=== PATIENT | female | born 1935 | race African-American/Black ===

== ENCOUNTER 2018-08-12 18:45 | Inpatient (IN) | payer MEDICARE ==
[~2018-08-12] VITALS: Ht 167.6 cm; Wt 91.2 kg
--- NOTE | 2018-08-12 19:10 | NUR ---
NURSE NOTES: Patient arrived on [facility] via ambulance from [facility]. Report was received from charge nurse ANNABELLE Pardo. Patient is stable, is not in pain, able to ambulate to the restroom. information manager placed on patient, family is at bedside, call light within reach and Dr. Merrill has been contacted for admission orders.
[2018-08-12 20:00] VITALS: BP 130/60
[2018-08-12] MEDS ORDERED: Milk of Magnesia 30ml Ud ORAL PRN (22:15)
[2018-08-13] VITALS: BP 130/60
[2018-08-13 04:00] VITALS: BP 108/46
[2018-08-13 06:07] LABS: BASOPHILS % (AUTO) 0.7 % (0.0-2.0); EOSINOPHILS % (AUTO) 0.5 % (0.0-3.0); HEMATOCRIT 36.9 % (37.0-47.0); HEMOGLOBIN 11.7 G/DL (12.0-16.0); LYMPHOCYTES % (AUTO) 15.1 % (20.0-45.0); MEAN CORPUSCULAR VOLUME 97 FL (80-99); MONOCYTES % (AUTO) 11.1 % (1.0-10.0); NEUTROPHILS % (AUTO) 72.6 % (45.0-75.0); PLATELET COUNT 116 K/UL (150-450); RED BLOOD COUNT 3.79 M/UL (4.20-5.40); RED CELL DISTRIBUTION WIDTH 15.7 % (11.6-14.8)
[2018-08-13] MEDS: sitaGLIPtin 25mg tab ORAL SCH (06:24)
[2018-08-13] MEDS: NovoLOG Insulin Flexpen SUBQ SCH ×4 (06:26→21:03)
[2018-08-13 06:46] LABS: ALANINE AMINOTRANSFERASE 18 U/L (12-78); ALBUMIN 3.4 G/DL (3.4-5.0); ALBUMIN/GLOBULIN RATIO 0.8 (1.0-2.7); ALKALINE PHOSPHATASE 97 U/L (46-116); ANION GAP 8 mmol/L (5-15); ASPARTATE AMINO TRANSFERASE 24 U/L (15-37); BILIRUBIN,TOTAL 0.6 MG/DL (0.2-1.0); BLOOD UREA NITROGEN 82 mg/dL (7-18); CALCIUM 9.6 MG/DL (8.5-10.1); CARBON DIOXIDE 27 MMOL/L (21-32); CHLORIDE 102 MMOL/L (98-107); CHOLESTEROL 136 MG/DL (< 200); CREATININE 2.7 MG/DL (0.55-1.30); HDL CHOLESTEROL 48 MG/DL (40-60); POTASSIUM 3.9 MMOL/L (3.5-5.1); SODIUM 137 MMOL/L (136-145); TRIGLYCERIDES 94 MG/DL (30-150)
--- NOTE | 2018-08-13 07:20 | NUR ---
HAND-OFF: Report given to ANNABELLE QUINTERO.
[2018-08-13 08:00] VITALS: BP 118/55
[2018-08-13] MEDS ORDERED: Heparin 5000 units/ml inj SUBQ SCH (09:00)
[2018-08-13] MEDS: Amiodarone 200mg tab ORAL SCH (09:46)
[2018-08-13] MEDS: Carvedilol 6.25mg Tab ORAL SCH ×2 (09:47→21:02)
[2018-08-13] MEDS: Allopurinol 100mg Tab ORAL SCH (09:47)
[2018-08-13] MEDS: Docusate 100mg cap ORAL SCH ×2 (09:47→17:59)
[2018-08-13] MEDS: Losartan 25mg tab ORAL SCH (09:48)
[2018-08-13] MEDS: Spironolactone 25mg tab ORAL SCH (09:48)
[2018-08-13] MEDS: Xarelto 15mg tab ORAL SCH (13:47)
[2018-08-13 15:27] VITALS: BP 101/52
[2018-08-13 16:57] VITALS: BP 125/63
--- NOTE | 2018-08-13 17:00 | NUR ---
NURSE NOTES:DR BRADY CAME TO SEE THE PT AND SPOKE WITH THE PATIENT AND FAMILY AND EXPLAINED REGARDING ABNORMAL RESULT OF PACE MAKER AND NEEDS INTERVENTION SOON POSSIBLE AND THE PROCEDURE NEEDS TO BE DONE AT [facility].PT AND FAMILY AGREE TO BE TRANSFER TO [facility].WILL CONT TO MONITOR.
--- NOTE | 2018-08-13 17:24 | Cardiac Electrophysiology PN ---
Subjective Subjective [id number] Objective Last 24 Hour Vital Signs Date Time Temp Pulse Resp B/P (MAP) Pulse Ox O2 Delivery O2 Flow Rate FiO2 08/13/18 16:57 97.6 61 19 125/63 (83) 61 08/13/18 15:27 97.6 65 20 101/52 (68) 67 08/13/18 12:00 62 08/13/18 09:48 118/55 08/13/18 09:47 62 118/55 08/13/18 09:00 Nasal Cannula 2.0 08/13/18 08:00 62 08/13/18 08:00 97.5 108 14 118/55 (76) 100 08/13/18 04:15 66 08/13/18 04:00 97.6 66 15 108/46 (66) 100 08/13/18 00:00 97.5 60 14 130/60 (83) 99 08/12/18 23:21 60 08/12/18 21:00 Nasal Cannula 2.0 08/12/18 20:00 60 08/12/18 20:00 98.0 60 14 130/60 (83) 99 08/12/18 19:00 Nasal Cannula 2.0 Laboratory Tests Test 08/13/18 04:50 White Blood Count 5.0 K/UL (4.8-10.8) Red Blood Count 3.79 M/UL (4.20-5.40) L Hemoglobin 11.7 G/DL (12.0-16.0) L Hematocrit 36.9 % (37.0-47.0) L Mean Corpuscular Volume 97 FL (80-99) Mean Corpuscular Hemoglobin 30.8 PG (27.0-31.0) Mean Corpuscular Hemoglobin Concent 31.7 G/DL (32.0-36.0) L Red Cell Distribution Width 15.7 % (11.6-14.8) H Platelet Count 116 K/UL (150-450) L Mean Platelet Volume 11.1 FL (6.5-10.1) H Neutrophils (%) (Auto) 72.6 % (45.0-75.0) Lymphocytes (%) (Auto) 15.1 % (20.0-45.0) L Monocytes (%) (Auto) 11.1 % (1.0-10.0) H Eosinophils (%) (Auto) 0.5 % (0.0-3.0) Basophils (%) (Auto) 0.7 % (0.0-2.0) Sodium Level 137 MMOL/L (136-145) Potassium Level 3.9 MMOL/L (3.5-5.1) Chloride Level 102 MMOL/L (98-107) Carbon Dioxide Level 27 MMOL/L (21-32) Anion Gap 8 mmol/L (5-15) Blood Urea Nitrogen 82 mg/dL (7-18) H Creatinine 2.7 MG/DL (0.55-1.30) H Estimat Glomerular Filtration Rate mL/min (>60) Glucose Level 173 MG/DL (74-106) H Hemoglobin A1c 8.7 % (4.3-6.0) H Calcium Level 9.6 MG/DL (8.5-10.1) Total Bilirubin 0.6 MG/DL (0.2-1.0) Aspartate Amino Transf (AST/SGOT) 24 U/L (15-37) Alanine Aminotransferase (ALT/SGPT) 18 U/L (12-78) Alkaline Phosphatase 97 U/L (46-116) Troponin I 0.109 ng/mL (0.000-0.056) Total Protein 7.5 G/DL (6.4-8.2) Albumin 3.4 G/DL (3.4-5.0) Globulin 4.1 g/dL Albumin/Globulin Ratio 0.8 (1.0-2.7) L Triglycerides Level 94 MG/DL (30-150) Cholesterol Level 136 MG/DL (< 200) LDL Cholesterol 75 mg/dL (<100) HDL Cholesterol 48 MG/DL (40-60) Cholesterol/HDL Ratio 2.8 (3.3-4.4) L Thyroid Stimulating Hormone (TSH) 0.766 uiU/mL (0.358-3.740) Microbiology Date/Time Source Procedure Growth Status 08/13/18 04:20 Rectum Received Gonzalez Grier MD Aug 13, 2018 17:24
--- NOTE | 2018-08-13 19:10 | NUR ---
HAND-OFF: Report given to .ENA ALANIS.
--- NOTE | 2018-08-13 19:20 | NUR ---
NURSE NOTES: Received patient from ANNABELLE QUINTERO. Patient is awake, alert and oriented x4. Patient is stable states no pain, and showing no signs and symptoms of distress. Family members are at bedside and will continue plan of care.
[2018-08-13 20:00] VITALS: BP 113/53
[2018-08-13] MEDS: Atorvastatin 20mg tab ORAL SCH (21:02)
[2018-08-14] VITALS: BP 115/57
--- NOTE | 2018-08-14 02:45 | Consultation ---
DATE OF CONSULTATION: 08/13/2018 NOTE: "POOR AUDIO QUALITY" CARDIOLOGY CONSULTATION CONSULTING PHYSICIAN: Gonzalez Grier M.D. REFERRING PHYSICIAN: Trae Calvo M.D. REASON FOR CONSULTATION: Evaluation of the patient's defibrillator. HISTORY OF PRESENT ILLNESS: The patient is a very pleasant 83-year-old lady, under my Cardiology care, with history of severe cardiomyopathy with ejection fraction of 32%, who also underwent cardiac catheterization in December 2017 that showed no evidence of significant coronary artery disease. The patient has also history of paroxysmal atrial fibrillation as well as history of pacemaker implantation that was upgraded to a [employer] biventricular defibrillator on March 31, 2018, at [facility]. The patient's right ventricular capture threshold was slightly high. The patient also has history of severe anemia, status post blood transfusion by Dr. Navarro. The patient presented to [facility] when she presented with three shocks from her defibrillator. The patient had only minimal troponin elevation. At my request, the patient was then transferred to [facility] for further evaluation and management. Defibrillator subsequently was interrogated today with three shocks likely due to noise on the defibrillator lead. RV capture threshold was also very high, but the shock impedance was within normal range. The patient is also pacemaker dependent with AV lead capture . REVIEW OF SYSTEMS: Performed and was negative other than what was mentioned in the history of present illness. PAST MEDICAL HISTORY: As mentioned above. MEDICATIONS: Include Xarelto 15 mg daily, Lipitor 10 mg daily, Plavix 75 mg daily, amiodarone 200 mg daily, Aldactone 25 mg daily, Coreg 6.25 mg b.i.d., and losartan 25 mg daily. FAMILY HISTORY: Noncontributory. SOCIAL HISTORY: She lives at home. Does not smoke or drink alcohol. PHYSICAL EXAMINATION: VITAL SIGNS: Showed blood pressure of 124/63, pulse 61, respirations 18, and she is afebrile. HEAD AND NECK: Showed no JVD. LUNGS: Clear. CARDIOVASCULAR: Regular S1 and S2 with no gallop or murmur. ABDOMEN: Soft. EXTREMITIES: No pitting edema. SKIN: Defibrillator in left subclavian is intact. LABORATORY DATA: Labs showed white count of 5, hemoglobin 11.7, hematocrit 37, and platelet count of 116,000. Sodium 137, potassium 3.9, BUN of 83, creatinine of 2.7, and glucose of 173. Troponin is 0.109. ASSESSMENT AND PLAN: 1. Defibrillator discharges from right ventricular lead artifact. It is possible that the RV lead has been pulled back and double counting causing defibrillator discharge. The patient has a capped right ventricular pacing lead from a pacemaker; however, the new device is a DF4 device and we cannot use that old pacing lead for RV sensing, so probably we will try to transfer the patient to [facility] as the patient would need a right ventricular lead revision. This may be in the form of repositioning the existing lead that may better capture threshold, repeated testing or if there is lead dysfunction, maybe able to remove the lead and place a new right ventricular sensing and shocking lead with the existing defibrillator. I discussed with the patient and the family the risks, benefits, and alternatives of therapy and they agreed and would like to proceed. In the meantime, we will stop Xarelto a couple of days prior to scheduled procedure and try to put her on the schedule. Since the patient is pacemaker dependent, we will rather put right ventricular transvenous lead as a backup or temporary pacing or is being attempted. 2. History of paroxysmal atrial fibrillation, on amiodarone 200 mg daily and Coreg 6.25 mg b.i.d. Xarelto will be held. 3. History of recurrent pleural effusion, status post VATS and pleurodesis, with doxycycline in July 2017. 4. COPD. 5. History of severe anemia. 6. Cardiomyopathy, ejection fraction of 32%, on Coreg, Lasix, Aldactone, and losartan. Thank you very much for allowing me to participate in the care of this patient. Please do not hesitate to contact me for any questions regarding my evaluation. Gonzalez Grier M.D. DR: Mel JOB#: [id number] CC:
[2018-08-14 04:00] VITALS: BP 124/53
[2018-08-14 04:47] LABS: BASOPHILS % (AUTO) 2.1 % (0.0-2.0); EOSINOPHILS % (AUTO) 0.9 % (0.0-3.0); HEMATOCRIT 34.9 % (37.0-47.0); HEMOGLOBIN 11.2 G/DL (12.0-16.0); MEAN CORPUSCULAR VOLUME 97 FL (80-99); MONOCYTES % (AUTO) 15.3 % (1.0-10.0); NEUTROPHILS % (AUTO) 64.8 % (45.0-75.0); PLATELET COUNT 127 K/UL (150-450); RED BLOOD COUNT 3.59 M/UL (4.20-5.40); RED CELL DISTRIBUTION WIDTH 15.9 % (11.6-14.8); WHITE BLOOD COUNT 4.7 K/UL (4.8-10.8)
[2018-08-14 05:23] LABS: ANION GAP 9 mmol/L (5-15); BLOOD UREA NITROGEN 79 mg/dL (7-18); CALCIUM 9.9 MG/DL (8.5-10.1); CARBON DIOXIDE 27 MMOL/L (21-32); CHLORIDE 104 MMOL/L (98-107); CREATININE 2.7 MG/DL (0.55-1.30); POTASSIUM 4.1 MMOL/L (3.5-5.1); SODIUM 140 MMOL/L (136-145)
--- NOTE | 2018-08-14 06:03 | NUR ---
NURSE NOTES: Spoke with Anselmo from [facility] regarding patients cardiac rhythms while here in [place]. She clarified patient's condition and AICD information. Plan is to transfer to [facility] per Desirae's request of or Monday; she will be working on bed/transfer placement. Charge nurse notified and will endorse to incoming RN.
[2018-08-14] MEDS: sitaGLIPtin 25mg tab ORAL SCH (06:25)
[2018-08-14] MEDS: NovoLOG Insulin Flexpen SUBQ SCH ×4 (06:26→20:53)
--- NOTE | 2018-08-14 07:15 | NUR ---
NURSE NOTES: RECEIVED BED SIDE REPORT FROM ENA SCABBLER OF NOC SHIFT. RECEIVED PT RESTING IN BED QUIETLY ,AWAKE AND ALERT DENIES CP OR SOB AT THIS TIME.PT USING O2 @ 2L/MINTS VIA N/C. PT IS V-PACING HR 60BPM NOTED ON [employer]ASS[employer] DEVELOPER.PT ENCOURAGED TO USED BED SIDE COMMODE AND TO USE CALL LIGHT WITH REACH TO REQUEST ASSISTANCE.FULL BODY ASSESSMENT DONE.WILL CONT TO MONITOR.
--- NOTE | 2018-08-14 07:32 | NUR ---
HAND-OFF: Report given to ANNABELLE QUINTERO.
[2018-08-14 08:00] VITALS: BP 99/61
[2018-08-14] MEDS: Docusate 100mg cap ORAL SCH ×2 (09:47→17:36)
[2018-08-14] MEDS: Spironolactone 25mg tab ORAL SCH (09:47)
[2018-08-14] MEDS: Losartan 25mg tab ORAL SCH (09:48)
[2018-08-14] MEDS: Amiodarone 200mg tab ORAL SCH (09:49)
[2018-08-14] MEDS: Allopurinol 100mg Tab ORAL SCH (09:56)
[2018-08-14] MEDS: Carvedilol 6.25mg Tab ORAL SCH ×2 (09:57→20:52)
[2018-08-14 12:00] VITALS: BP 116/57
--- NOTE | 2018-08-14 15:55 | Cardiac Electrophysiology PN ---
Assessment/Plan Assessment/Plan 1. Defibrillator discharges from right ventricular lead artifact. It is possible that the RV lead has been pulled back and double counting causing defibrillator discharge. The patient has a capped right ventricular pacing lead from an old pacemaker. The new device is a DF4 device and we cannot use that old pacing lead for RV sensing. Awaiting transfer to [facility] as the patient would need a right ventricular lead revision. This may be in the form of repositioning the existing lead that may cause better capture threshold, or maybe able to remove the lead and place a new right ventricular sensing and shocking lead with the existing defibrillator. I discussed with the patient and the family the risks, benefits, and alternatives of therapy and they agreed and would like to proceed. In the meantime, we will stop Xarelto a couple of days prior to scheduled procedure that is on the schedule on 08/17/18. Since the patient is pacemaker dependent, we will put right ventricular transvenous lead as a backup 2. History of paroxysmal atrial fibrillation, on amiodarone 200 mg daily and Coreg 6.25 mg b.i.d. Xarelto will be held. 3. History of recurrent pleural effusion, status post VATS and pleurodesis, with doxycycline in July 2017. 4. COPD. 5. History of severe anemia. 6. Cardiomyopathy, ejection fraction of 32%, on Coreg, Lasix, Aldactone, and losartan. DW [facility] CTR and scheduling department Subjective Subjective Remained V paced. No CP or SOB Objective Last 24 Hour Vital Signs Date Time Temp Pulse Resp B/P (MAP) Pulse Ox O2 Delivery O2 Flow Rate FiO2 08/14/18 12:00 97.8 60 23 116/57 (76) 08/14/18 12:00 60 08/14/18 09:57 116 109/60 08/14/18 09:48 99/61 08/14/18 09:00 Nasal Cannula 2.0 08/14/18 08:00 118 08/14/18 08:00 97.8 116 24 99/61 (74) 100 08/14/18 04:00 98.2 62 16 124/53 (76) 98 08/14/18 03:23 66 08/14/18 00:10 63 08/14/18 00:00 98.6 68 20 115/57 (76) 98 08/13/18 21:02 63 113/53 08/13/18 21:00 Nasal Cannula 2.0 08/13/18 20:00 98.5 63 20 113/53 (73) 93 08/13/18 19:27 60 08/13/18 16:57 97.6 61 19 125/63 (83) 61 08/13/18 16:00 61 Intake and Output 08/13/18 08/14/18 19:00 07:00 Intake Total 580 ml Balance 580 ml Intake Oral 580 ml # Voids 2 1 # Bowel Movements 1 Laboratory Tests Test 08/14/18 03:35 White Blood Count 4.7 K/UL (4.8-10.8) L Red Blood Count 3.59 M/UL (4.20-5.40) L Hemoglobin 11.2 G/DL (12.0-16.0) L Hematocrit 34.9 % (37.0-47.0) L Mean Corpuscular Volume 97 FL (80-99) Mean Corpuscular Hemoglobin 31.1 PG (27.0-31.0) H Mean Corpuscular Hemoglobin Concent 32.0 G/DL (32.0-36.0) Red Cell Distribution Width 15.9 % (11.6-14.8) H Platelet Count 127 K/UL (150-450) L Mean Platelet Volume 9.6 FL (6.5-10.1) Neutrophils (%) (Auto) 64.8 % (45.0-75.0) Lymphocytes (%) (Auto) 17.0 % (20.0-45.0) L Monocytes (%) (Auto) 15.3 % (1.0-10.0) H Eosinophils (%) (Auto) 0.9 % (0.0-3.0) Basophils (%) (Auto) 2.1 % (0.0-2.0) H Sodium Level 140 MMOL/L (136-145) Potassium Level 4.1 MMOL/L (3.5-5.1) Chloride Level 104 MMOL/L (98-107) Carbon Dioxide Level 27 MMOL/L (21-32) Anion Gap 9 mmol/L (5-15) Blood Urea Nitrogen 79 mg/dL (7-18) H Creatinine 2.7 MG/DL (0.55-1.30) H Estimat Glomerular Filtration Rate mL/min (>60) Glucose Level 66 MG/DL (74-106) #L Calcium Level 9.9 MG/DL (8.5-10.1) Magnesium Level 2.1 MG/DL (1.8-2.4) Troponin I 0.089 ng/mL (0.000-0.056) Pro-B-Type Natriuretic Peptide 2338 pg/mL (0-125) H Microbiology Date/Time Source Procedure Growth Status 08/13/18 04:20 Rectum Received Objective HEAD AND NECK: No JVD. LUNGS: Clear. CARDIOVASCULAR: Regular S1 and S2 with no gallop or murmur. ABDOMEN: Soft. EXTREMITIES: No pitting edema. SKIN: Defibrillator in left subclavian is intact. Gonzalez Grier MD Aug 14, 2018 15:55
[2018-08-14 16:00] VITALS: BP 119/48
--- NOTE | 2018-08-14 16:11 | Consultation ---
Consult Note Assessment/Plan Renal consult dictated # [id number] Corbin Pearl MD Aug 14, 2018 16:11
[2018-08-14] MEDS: Xarelto 15mg tab ORAL SCH (16:30)
[2018-08-14] MEDS ORDERED: SPIRONOLACTONE25 MG ORAL (18:39)
[2018-08-14] MEDS ORDERED: LOSARTAN POTASS25 MG ORAL (18:39)
[2018-08-14] MEDS ORDERED: LIPITOR80 MG ORAL (18:39)
[2018-08-14] MEDS ORDERED: PANTOPRAZOLE SO40 MG ORAL (18:39)
[2018-08-14] MEDS ORDERED: [UNRECOGNIZED DRUG - OTHER] PO (18:39)
[2018-08-14] MEDS ORDERED: ZYLOPRIM100 MG ORAL (18:39)
[2018-08-14] MEDS ORDERED: CARVEDILOL6.25 MG ORAL (18:39)
[2018-08-14] MEDS ORDERED: JANUVIA25 MG ORAL (18:39)
[2018-08-14] MEDS ORDERED: PLAVIX75 MG ORAL (18:39)
[2018-08-14] MEDS ORDERED: SYNTHROID100 MCG ORAL (18:39)
[2018-08-14] MEDS ORDERED: NATEGLINIDE120 MG PO (18:39)
[2018-08-14] MEDS ORDERED: KLOR-CON 1010 MEQ ORAL (18:39)
[2018-08-14] MEDS ORDERED: VITAMIN D250000 UNI1 ORAL (18:39)
[2018-08-14] MEDS ORDERED: FAMOTIDINE20 MG ORAL (18:39)
[2018-08-14] MEDS ORDERED: FUROSEMIDE40 MG ORAL (18:39)
[2018-08-14] MEDS ORDERED: AMIODARONE HCL400 M1 ORAL (18:39)
[2018-08-14 19:02] LABS: APPEARANCE,URINE CLOUDY; BILIRUBIN, URINE NEGATIVE (NEGATIVE); COLOR,URINE PALE YELLOW; GLUCOSE, URINE (UA) NEGATIVE (NEGATIVE); KETONES,URINE NEGATIVE (NEGATIVE); LEUKOCYTE ESTERASE ,URINE 3+ (NEGATIVE); NITRITE,URINE NEGATIVE (NEGATIVE); PH,URINE 5 (4.5-8.0); PROTEIN,URINE NEGATIVE (NEGATIVE); UROBILINOGEN,URINE NORMAL MG/DL (0.0-1.0)
--- NOTE | 2018-08-14 19:25 | NUR ---
HAND-OFF: Report given to .MARTA ALANIS.
--- NOTE | 2018-08-14 19:26 | NUR ---
NURSE NOTES: Report received from ANNABELLE Trinidad. Pt A/Ox4, ambulatory. property specialist shows v-pacing. Pt currently on 2L NC. Shows no signs of cardiac or respiratory distress. Pt on an 1800 tim CCHO medium diet. Uses bedside commode for excretion. Accuchecks are ACHS. No skin issues noted. Pt has a LFA24g, patent and asymptomatic. Bed in lowest position, call light within reach, bed alarms placed. Will continue to monitor and with patients plan of care.
[2018-08-14 20:00] VITALS: BP 115/61
[2018-08-14] MEDS: Atorvastatin 20mg tab ORAL SCH (20:50)
--- NOTE | 2018-08-14 21:16 | General Progress Note ---
Assessment/Plan Assessment/Plan NICSteve Medina has BIVICD chf cad COPD ho CVA anemia diabetes pafib htn cards fup diuresis pulmonay hygiene monitor labs bp stable dvt and ulcer prohylaxis Subjective Allergies: Coded Allergies: MORPHINE (Verified Allergy, Unknown, 08/12/18) Subjective no chest pain or sob Objective Last 24 Hour Vital Signs Date Time Temp Pulse Resp B/P (MAP) Pulse Ox O2 Delivery O2 Flow Rate FiO2 08/14/18 20:52 83 115/76 08/14/18 16:00 97.8 61 21 119/48 (71) 98 08/14/18 16:00 60 08/14/18 12:00 60 08/14/18 12:00 97.8 60 23 116/57 (76) 100 08/14/18 09:57 116 109/60 08/14/18 09:48 99/61 08/14/18 09:00 Nasal Cannula 2.0 08/14/18 08:00 118 08/14/18 08:00 97.8 116 24 99/61 (74) 100 08/14/18 04:00 98.2 62 16 124/53 (76) 98 08/14/18 03:23 66 08/14/18 00:10 63 08/14/18 00:00 98.6 68 20 115/57 (76) 98 Intake and Output 08/13/18 08/14/18 19:00 07:00 Intake Total 580 ml Balance 580 ml Intake Oral 580 ml # Voids 2 1 # Bowel Movements 1 Laboratory Tests 08/14/18 03:35: White Blood Count 4.7L, Red Blood Count 3.59L, Hemoglobin 11.2L, Hematocrit 34.9L, Mean Corpuscular Volume 97, Mean Corpuscular Hemoglobin 31.1H, Mean Corpuscular Hemoglobin Concent 32.0, Red Cell Distribution Width 15.9H, Platelet Count 127L, Mean Platelet Volume 9.6, Neutrophils (%) (Auto) 64.8, Lymphocytes (%) (Auto) 17.0L, Monocytes (%) (Auto) 15.3H, Eosinophils (%) (Auto ) 0.9, Basophils (%) (Auto) 2.1H, Sodium Level 140, Potassium Level 4.1, Chloride Level 104, Carbon Dioxide Level 27, Anion Gap 9, Blood Urea Nitrogen 79H, Creatinine 2.7H, Estimat Glomerular Filtration Rate , Glucose Level 66#L, Calcium Level 9.9, Magnesium Level 2.1, Troponin I 0.089H, Pro-B-Type Natriuretic Peptide 2338H 08/14/18 17:25: Calcium (Send out) [Pending], Parathyroid Hormone (Intact) [Pending] 08/14/18 18:00: Urine Color Pale yellow, Urine Appearance Cloudy, Urine pH 5, Urine Specific [place] 1.010, Urine Protein Negative, Urine Glucose (UA) Negative, Urine Ketones Negative, Urine Blood 1+H, Urine Nitrite Negative, Urine Bilirubin Negative, Urine Urobilinogen Normal, Urine Leukocyte Esterase 3+H, Urine RBC 0-2 , Urine WBC TntcH, Urine Squamous Epithelial Cells Occasional, Urine Bacteria ManyH Height (Feet): 5 Height (Inches): 6.00 Weight (Pounds): 173 General Appearance: WD/WN, no apparent distress Neck: supple Cardiovascular: normal rate Respiratory/Chest: lungs clear Abdomen: soft Edema: no edema noted Arm (L), no edema noted Arm (R), no edema noted Leg (L), no edema noted Leg (R), no edema noted Pedal (L), no edema noted Pedal (R), no edema noted Generalized Trae Calvo MD Aug 14, 2018 21:16
--- NOTE | 2018-08-14 22:45 | Consultation ---
DATE OF CONSULTATION: REFERRING PHYSICIAN: Trae Calvo M.D. REASON FOR CONSULTATION: Renal failure. HISTORY OF PRESENT ILLNESS: This 83-year-old -[place] female with history of severe cardiomyopathy ejection fraction about 32%. I was asked to see her because of her renal failure. She was admitted with BUN of 82, creatinine 2.7 as of yesterday and today the BUN and creatinine are 79, 2.7. The patient has had long history of diabetes and hypertension and both diabetes as well as her hypertension have not always been in good control. 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 She was told about a year ago she has some kidney problems she thought that this is mild. PAST MEDICAL HISTORY: The patient has also history of defibrillator, which was in March 2018, cardiac catheterization in December 2017 with no evidence of significant coronary artery disease. She has history of atrial fibrillation. MEDICATIONS: Reviewed in the EMR. SOCIAL HISTORY: The patient stopped smoking in 1996. She drinks occasionally. ALLERGIES: Morphine makes her very confused. REVIEW OF SYSTEMS: Noncontributory. Specifically, the patient denies any urinary symptoms. PHYSICAL EXAMINATION: GENERAL: The patient is an elderly female, in no acute distress. VITAL SIGNS: Blood pressure is 116/57, pulse 60, respiratory is 23, temperature 97.8. HEENT: [place] conjunctivae. Anicteric sclerae. NECK: Supple. LUNGS: Clear to auscultation. HEART: S1, S2 without murmurs or rubs. ABDOMEN: Soft, nontender. EXTREMITIES: No cyanosis or edema. LABORATORY FINDINGS: The chemistry panel shows serum sodium 140, potassium 4.1, chloride 104, CO2 27, BUN 79, creatinine 2.7, Mag is 2.1, and calcium is 9.9. The CBC shows a WBC of 4700, hematocrit is 34.9, hemoglobin is 11.2, platelets 127,000. ASSESSMENT: This is an 83-year-old female was admitted with problems with pacemaker and she has renal failure, which has not changed since yesterday it is unclear what her baseline serum creatinine is, but very likely she has the CKD from diabetes and hypertension. Other possibility such as obstruction needs to be ruled out although less likely. PLAN: The patient will have a UA as well as a renal ultrasound for workup. I will get also vitamin D level and PTH to make sure the patient is vitamin D deficiency and secondary hyperthyroidism. Chemistry panel will be followed and further recommendations will be given based on those results. Thank you very much, Dr. Calvo, for this consultation. Corbin Pearl M.D. DR: Mary JOB#: [id number] CC: SELENA
[2018-08-15] VITALS: BP 104/65
[2018-08-15 04:00] VITALS: BP 109/60
[2018-08-15] MEDS: sitaGLIPtin 25mg tab ORAL SCH (05:31)
[2018-08-15] MEDS: NovoLOG Insulin Flexpen SUBQ SCH ×4 (05:34→21:24)
--- NOTE | 2018-08-15 07:20 | NUR ---
NURSE NOTES: Received patient from Seth Murray RN. Patient in bed and asleep. On 2L NC and in no respiratory distress. visual aid expert in placed. Able to ambulate to the bedside commode. Bed in lowest position with side rails up. Will continue to follow plan of care.
[2018-08-15 07:55] LABS: ANION GAP 8 mmol/L (5-15); BLOOD UREA NITROGEN 78 mg/dL (7-18); CALCIUM 10.1 MG/DL (8.5-10.1); CARBON DIOXIDE 27 MMOL/L (21-32); CHLORIDE 103 MMOL/L (98-107); CREATININE 2.7 MG/DL (0.55-1.30); PHOSPHORUS 3.6 MG/DL (2.5-4.9); POTASSIUM 4.4 MMOL/L (3.5-5.1); SODIUM 138 MMOL/L (136-145)
[2018-08-15 08:00] VITALS: BP 115/50
[2018-08-15 08:17] LABS: BASOPHILS % (AUTO) 1.1 % (0.0-2.0); EOSINOPHILS % (AUTO) 0.3 % (0.0-3.0); HEMATOCRIT 38.5 % (37.0-47.0); HEMOGLOBIN 12.2 G/DL (12.0-16.0); LYMPHOCYTES % (AUTO) 13.8 % (20.0-45.0); MEAN CORPUSCULAR VOLUME 97 FL (80-99); MONOCYTES % (AUTO) 13.1 % (1.0-10.0); NEUTROPHILS % (AUTO) 71.7 % (45.0-75.0); PLATELET COUNT 114 K/UL (150-450); RED BLOOD COUNT 3.97 M/UL (4.20-5.40); RED CELL DISTRIBUTION WIDTH 15.7 % (11.6-14.8); WHITE BLOOD COUNT 5.4 K/UL (4.8-10.8)
[2018-08-15] MEDS: Docusate 100mg cap ORAL SCH ×2 (09:07→17:29)
[2018-08-15] MEDS: Carvedilol 6.25mg Tab ORAL SCH ×2 (09:07→21:00)
[2018-08-15] MEDS: Losartan 25mg tab ORAL SCH (09:07)
[2018-08-15] MEDS: Amiodarone 200mg tab ORAL SCH (09:07)
[2018-08-15] MEDS: Allopurinol 100mg Tab ORAL SCH (09:08)
[2018-08-15] MEDS: Spironolactone 25mg tab ORAL SCH (09:08)
[2018-08-15 12:00] VITALS: BP 104/64
--- NOTE | 2018-08-15 12:49 | NUR ---
PREPRESS MANAGERCREDIT INTERVIEWER 83 Y/O FEMALE DIRECT ADMIT FROM [facility] CC:PACE MAKER MALFUNCTION SI:PACE MAKER MALFUNCTION . CKD VS: BP 115/50, P 131, T 97.2, RR 28, SpO2 97 ON 2.0L NC BUN 78, CR 2.7, URINE BLOOD 1+, RBC 3.97 IS:K-DUR 10meq PLAVIX 75mg CORDARONE 200mg ALDACTONE 25mg COREG 6.25mg COZAAR 25mg ALLOPURINOL 100mg PROTONIX 40mg SYNTHROID 100mcg STARLIX 100mcg JANUVIA 25mg NOVOLOG SUBQ PACE MAKER REPLACEMENT 08/17 SDU STATUS
--- NOTE | 2018-08-15 14:36 | Nephrology Progress Note ---
Assessment/Plan Problem List: (1) Pacemaker malfunction (2) CKD (chronic kidney disease) Assessment: stable (3) DM (diabetes mellitus) (4) HTN (hypertension) Assessment: ok (5) Cardiomyopathy (6) UTI (urinary tract infection) Plan DC KCL diuretics ? check PTH and Vit D follow BMP check urine culture Subjective Subjective feels ok Objective Objective Last 24 Hour Vital Signs Date Time Temp Pulse Resp B/P (MAP) Pulse Ox O2 Delivery O2 Flow Rate FiO2 08/15/18 12:00 97.7 112 18 104/64 (77) 100 08/15/18 09:07 115/50 08/15/18 09:07 118 115/50 08/15/18 09:00 Nasal Cannula 2.0 08/15/18 08:00 116 08/15/18 08:00 97.2 118 18 115/50 (71) 97 08/15/18 04:00 97.9 113 28 109/60 (76) 100 08/15/18 04:00 115 08/15/18 00:00 98.0 131 20 104/65 (78) 99 08/15/18 00:00 118 08/14/18 21:00 Nasal Cannula 2.0 08/14/18 20:52 83 115/76 08/14/18 20:00 98.9 66 20 115/61 (79) 100 08/14/18 20:00 121 08/14/18 16:00 97.8 61 21 119/48 (71) 98 08/14/18 16:00 60 Intake and Output 08/14/18 08/15/18 18:59 06:59 Intake Total 200 ml 80 ml Balance 200 ml 80 ml Intake Oral 200 ml 80 ml # Voids 1 # Bowel Movements 1 Laboratory Tests 08/14/18 17:25: Calcium (Send out) 9.6, PTH (Intact) Whole Molecule Comment, Parathyroid Hormone (Intact) 146H 08/14/18 18:00: Urine Color Pale yellow, Urine Appearance Cloudy, Urine pH 5, Urine Specific [place] 1.010, Urine Protein Negative, Urine Glucose (UA) Negative, Urine Ketones Negative, Urine Blood 1+H, Urine Nitrite Negative, Urine Bilirubin Negative, Urine Urobilinogen Normal, Urine Leukocyte Esterase 3+H, Urine RBC 0-2 , Urine WBC TntcH, Urine Squamous Epithelial Cells Occasional, Urine Bacteria ManyH 08/15/18 06:54: White Blood Count 5.4, Red Blood Count 3.97L, Hemoglobin 12.2, Hematocrit 38.5, Mean Corpuscular Volume 97, Mean Corpuscular Hemoglobin 30.7, Mean Corpuscular Hemoglobin Concent 31.6L, Red Cell Distribution Width 15.7H, Platelet Count 114L , Mean Platelet Volume 11.9H, Neutrophils (%) (Auto) 71.7, Lymphocytes (%) (Auto ) 13.8L, Monocytes (%) (Auto) 13.1H, Eosinophils (%) (Auto) 0.3, Basophils (%) ( Auto) 1.1, Sodium Level 138, Potassium Level 4.4, Chloride Level 103, Carbon Dioxide Level 27, Anion Gap 8, Blood Urea Nitrogen 78H, Creatinine 2.7H, Estimat Glomerular Filtration Rate , Glucose Level 153H, Calcium Level 10.1, Phosphorus Level 3.6, Vitamin D 25-Hydroxy [Pending], 25-Hydroxy Vitamin D2 [ Pending], 25-Hydroxy Vitamin D3 [Pending] Height (Feet): 5 Height (Inches): 6.00 Weight (Pounds): 173 Cardiovascular: normal rate Respiratory/Chest: lungs clear Extremities: other - no edema Corbin Pearl MD Aug 15, 2018 14:36
[2018-08-15 16:00] VITALS: BP 98/60
--- NOTE | 2018-08-15 16:47 | Cardiology Progress Note ---
Assessment/Plan Status: stable Assessment/Plan Assessment/Plan Assessment/Plan 1. Defibrillator discharges from right ventricular lead artifact. It is possible that the RV lead has been pulled back and double counting causing defibrillator discharge. The patient has a capped right ventricular pacing lead from an old pacemaker. The new device is a DF4 device and we cannot use that old pacing lead for RV sensing. Awaiting transfer to [facility] as the patient would need a right ventricular lead revision. This may be in the form of repositioning the existing lead that may cause better capture threshold, or maybe able to remove the lead and place a new right ventricular sensing and shocking lead with the existing defibrillator. I discussed with the patient and the family the risks, benefits, and alternatives of therapy and they agreed and would like to proceed. In the meantime, we will stop Xarelto a couple of days prior to scheduled procedure that is on the schedule on 08/17/18. Since the patient is pacemaker dependent, we will put right ventricular transvenous lead as a backup 2. History of paroxysmal atrial fibrillation, on amiodarone 200 mg daily and Coreg 6.25 mg b.i.d. Xarelto will be held. 3. History of recurrent pleural effusion, status post VATS and pleurodesis, with doxycycline in July 2017. 4. COPD. 5. History of severe anemia. 6. Cardiomyopathy, ejection fraction of 32%, on Coreg, Lasix, Aldactone, and losartan. Subjective Cardiovascular: Reports: no symptoms Respiratory: Reports: no symptoms Gastrointestinal/Abdominal: Reports: no symptoms Genitourinary: Reports: no symptoms Subjective Coverage for [place] Objective Last 24 Hour Vital Signs Date Time Temp Pulse Resp B/P (MAP) Pulse Ox O2 Delivery O2 Flow Rate FiO2 08/15/18 15:19 114 08/15/18 12:00 97.7 112 18 104/64 (77) 100 08/15/18 09:07 115/50 08/15/18 09:07 118 115/50 08/15/18 09:00 Nasal Cannula 2.0 08/15/18 08:00 116 08/15/18 08:00 97.2 118 18 115/50 (71) 97 08/15/18 04:00 97.9 113 28 109/60 (76) 100 08/15/18 04:00 115 08/15/18 00:00 98.0 131 20 104/65 (78) 99 08/15/18 00:00 118 08/14/18 21:00 Nasal Cannula 2.0 08/14/18 20:52 83 115/76 08/14/18 20:00 98.9 66 20 115/61 (79) 100 08/14/18 20:00 121 General Appearance: no apparent distress, alert, mild distress EENT: PERRL/EOMI, normal ENT inspection Neck: non-tender, supple, normal inspection Rhythm: NSR Cardiovascular: normal rate Respiratory/Chest: chest wall non-tender, lungs clear, normal breath sounds, no respiratory distress Abdomen: normal bowel sounds, non tender, soft, no organomegaly Extremities: normal range of motion, non-tender, normal inspection Neurologic: area forester II-XII grossly normal, no motor/sensory deficits Intake and Output 08/14/18 08/15/18 18:59 06:59 Intake Total 200 ml 80 ml Balance 200 ml 80 ml Intake Oral 200 ml 80 ml # Voids 1 # Bowel Movements 1 Laboratory Tests Test 08/14/18 17:25 08/14/18 18:00 08/15/18 06:54 Calcium (Send out) 9.6 mg/dL (8.7-10.3) PTH (Intact) Whole Molecule Comment (.) Parathyroid Hormone (Intact) 146 pg/mL (15-65) H Urine Color Pale yellow Urine Appearance Cloudy Urine pH 5 (4.5-8.0) Urine Specific [place] 1.010 (1.005-1.035) Urine Protein Negative (NEGATIVE) Urine Glucose (UA) Negative (NEGATIVE) Urine Ketones Negative (NEGATIVE) Urine Blood 1+ (NEGATIVE) H Urine Nitrite Negative (NEGATIVE) Urine Bilirubin Negative (NEGATIVE) Urine Urobilinogen Normal MG/DL (0.0-1.0) Urine Leukocyte Esterase 3+ (NEGATIVE) H Urine RBC 0-2 /HPF (0 - 2) Urine WBC Tntc /HPF (0 - 2) H Urine Squamous Epithelial Cells Occasional /LPF Urine Bacteria Many /HPF (NONE) H White Blood Count 5.4 K/UL (4.8-10.8) Red Blood Count 3.97 M/UL (4.20-5.40) L Hemoglobin 12.2 G/DL (12.0-16.0) Hematocrit 38.5 % (37.0-47.0) Mean Corpuscular Volume 97 FL (80-99) Mean Corpuscular Hemoglobin 30.7 PG (27.0-31.0) Mean Corpuscular Hemoglobin Concent 31.6 G/DL (32.0-36.0) L Red Cell Distribution Width 15.7 % (11.6-14.8) H Platelet Count 114 K/UL (150-450) L Mean Platelet Volume 11.9 FL (6.5-10.1) H Neutrophils (%) (Auto) 71.7 % (45.0-75.0) Lymphocytes (%) (Auto) 13.8 % (20.0-45.0) L Monocytes (%) (Auto) 13.1 % (1.0-10.0) H Eosinophils (%) (Auto) 0.3 % (0.0-3.0) Basophils (%) (Auto) 1.1 % (0.0-2.0) Sodium Level 138 MMOL/L (136-145) Potassium Level 4.4 MMOL/L (3.5-5.1) Chloride Level 103 MMOL/L (98-107) Carbon Dioxide Level 27 MMOL/L (21-32) Anion Gap 8 mmol/L (5-15) Blood Urea Nitrogen 78 mg/dL (7-18) H Creatinine 2.7 MG/DL (0.55-1.30) H Estimat Glomerular Filtration Rate mL/min (>60) Glucose Level 153 MG/DL (74-106) H Calcium Level 10.1 MG/DL (8.5-10.1) Phosphorus Level 3.6 MG/DL (2.5-4.9) Vitamin D 25-Hydroxy Pending 25-Hydroxy Vitamin D2 Pending 25-Hydroxy Vitamin D3 Pending Microbiology Date/Time Source Procedure Growth Status 08/13/18 04:20 Nose MRSA Culture - Final NO METHICILLIN RESISTANT STAPH AUREUS... Complete 08/14/18 18:00 Urine,Clean Catch Urine Culture - Preliminary Gram Negative Bacillus 1 Resulted 08/13/18 04:20 Rectum - Final NO CARBAPENEM-RESISTANT ENTEROBACTERI... Complete 08/13/18 04:20 Rectum VRE Culture - Final NO VANCOMYCIN RESISTANT ENTEROCOCCUS ... Complete Joshua Tovar MD Aug 15, 2018 16:47
[2018-08-15 18:07] LABS: ANION GAP 9 mmol/L (5-15); BLOOD UREA NITROGEN 76 mg/dL (7-18); CALCIUM 10.1 MG/DL (8.5-10.1); CARBON DIOXIDE 27 MMOL/L (21-32); CHLORIDE 101 MMOL/L (98-107); CREATININE 2.6 MG/DL (0.55-1.30); POTASSIUM 4.7 MMOL/L (3.5-5.1); SODIUM 137 MMOL/L (136-145)
--- NOTE | 2018-08-15 19:15 | NUR ---
HAND-OFF: Report given to ANNABELLE Polanco.
[2018-08-15 20:00] VITALS: BP 107/68
--- NOTE | 2018-08-15 20:20 | NUR ---
NURSE NOTES: Recvd pt. Pt is awake and alert AOX4. Pt is on NC @ 2L with no sob or resp distress. Pt is on restricted tim 1800, pt aware. Pt has Left FA 24g saline locked. Bed in lowest position, call light within reach, will continue with plan of care
[2018-08-15] MEDS: Atorvastatin 20mg tab ORAL SCH (21:25)
--- NOTE | 2018-08-15 22:09 | General Progress Note ---
Assessment/Plan Assessment/Plan NIKKI Medina has BIVICD chf cad COPD ho CVA anemia diabetes pafib htn cards fup, awaiting arrangment for trasnfer to [facility] hygiene monitor labs bp stable accuchecks noted dvt and ulcer prohylaxis Subjective Allergies: Coded Allergies: MORPHINE (Verified Allergy, Unknown, 08/12/18) Subjective no chest pain or sob Objective Last 24 Hour Vital Signs Date Time Temp Pulse Resp B/P (MAP) Pulse Ox O2 Delivery O2 Flow Rate FiO2 08/15/18 21:00 85 107/68 08/15/18 18:00 Nasal Cannula 2.0 08/15/18 16:00 97.5 110 16 98/60 (73) 99 08/15/18 15:47 115 08/15/18 15:19 114 08/15/18 12:00 97.7 112 18 104/64 (77) 100 08/15/18 09:07 115/50 08/15/18 09:07 118 115/50 08/15/18 09:00 Nasal Cannula 2.0 08/15/18 08:00 116 08/15/18 08:00 97.2 118 18 115/50 (71) 97 08/15/18 04:00 97.9 113 28 109/60 (76) 100 08/15/18 04:00 115 08/15/18 00:00 98.0 131 20 104/65 (78) 99 08/15/18 00:00 118 Intake and Output 08/14/18 08/15/18 19:00 07:00 Intake Total 200 ml 80 ml Balance 200 ml 80 ml Intake Oral 200 ml 80 ml # Voids 1 # Bowel Movements 1 Laboratory Tests 08/15/18 06:54: White Blood Count 5.4, Red Blood Count 3.97L, Hemoglobin 12.2, Hematocrit 38.5, Mean Corpuscular Volume 97, Mean Corpuscular Hemoglobin 30.7, Mean Corpuscular Hemoglobin Concent 31.6L, Red Cell Distribution Width 15.7H, Platelet Count 114L , Mean Platelet Volume 11.9H, Neutrophils (%) (Auto) 71.7, Lymphocytes (%) (Auto ) 13.8L, Monocytes (%) (Auto) 13.1H, Eosinophils (%) (Auto) 0.3, Basophils (%) ( Auto) 1.1, Sodium Level 138, Potassium Level 4.4, Chloride Level 103, Carbon Dioxide Level 27, Anion Gap 8, Blood Urea Nitrogen 78H, Creatinine 2.7H, Estimat Glomerular Filtration Rate , Glucose Level 153H, Calcium Level 10.1, Phosphorus Level 3.6, Vitamin D 25-Hydroxy [Pending], 25-Hydroxy Vitamin D2 [ Pending], 25-Hydroxy Vitamin D3 [Pending] 08/15/18 17:45: Sodium Level 137, Potassium Level 4.7, Chloride Level 101, Carbon Dioxide Level 27, Anion Gap 9, Blood Urea Nitrogen 76H, Creatinine 2.6H, Estimat Glomerular Filtration Rate , Glucose Level 134H, Calcium Level 10.1 Height (Feet): 5 Height (Inches): 6.00 Weight (Pounds): 173 General Appearance: WD/WN, no apparent distress Neck: supple Cardiovascular: normal rate Respiratory/Chest: lungs clear Abdomen: soft Edema: no edema noted Arm (L), no edema noted Arm (R), no edema noted Leg (L), no edema noted Leg (R), no edema noted Pedal (L), no edema noted Pedal (R), no edema noted Generalized Trae Calvo MD Aug 15, 2018 22:09
--- NOTE | 2018-08-15 23:13 | NUR ---
NURSE NOTES: Pt is complaining of chest pain in left side chest. Called Dr Merrill, Pt is V paced with HR 110. awaiting new orders
[2018-08-16] VITALS: BP 115/61
[2018-08-16 04:00] VITALS: BP 105/62
[2018-08-16] MEDS: NovoLOG Insulin Flexpen SUBQ SCH ×4 (06:13→21:00)
[2018-08-16] MEDS: sitaGLIPtin 25mg tab ORAL SCH (06:14)
--- NOTE | 2018-08-16 07:25 | NUR ---
NURSE NOTES: Report received from Sherri Brandon RN.Pt sitting up on bed awake,alert noted no resp distress denies any c/o chest pain or discomfort,V-paced on the monitor,IV site to LFA intact ,skin warm and dry SR up x2 call stevens within reach at bedside,bed lock in lowest position ,will caontinue with plans of care.
[2018-08-16 08:00] VITALS: BP 104/50
[2018-08-16] MEDS: Docusate 100mg cap ORAL SCH ×2 (09:20→17:49)
[2018-08-16] MEDS: Amiodarone 200mg tab ORAL SCH (09:20)
[2018-08-16] MEDS: Carvedilol 6.25mg Tab ORAL SCH ×2 (09:21→21:00)
[2018-08-16] MEDS: Losartan 25mg tab ORAL SCH (09:22)
[2018-08-16] MEDS: Spironolactone 25mg tab ORAL SCH (09:22)
[2018-08-16] MEDS: Allopurinol 100mg Tab ORAL SCH (09:22)
--- NOTE | 2018-08-16 09:31 | Diagnostic Imaging Report ---
Indication: Chronic renal failure Technique: Grayscale and duplex images of the kidneys, retroperitoneum, and bladder were obtained. Comparison: Findings: Right kidney measures 11.5 cm in length. Left kidney measures 10.5 cm in length. Both kidneys demonstrate normal echogenicity. The left kidney demonstrates a 12 mm cyst.. No focal abnormality. Normal inferior vena cava. Bladder is normal, calculated volume 352 mL. Bilateral ureteral jets are noted. Impression: Negative for hydronephrosis Incidental finding left renal cyst.
[2018-08-16 12:00] VITALS: BP 143/91
--- NOTE | 2018-08-16 12:10 | NUR ---
NURSE NOTES: Pt stable,denies any c/o chest pain or shocking episode,watching TV,family member at bedside.
--- NOTE | 2018-08-16 12:21 | Nephrology Progress Note ---
Assessment/Plan Problem List: (1) Pacemaker malfunction (2) CKD (chronic kidney disease) Assessment: stable (3) DM (diabetes mellitus) (4) HTN (hypertension) Assessment: ok (5) Cardiomyopathy (6) UTI (urinary tract infection) (7) Secondary hyperparathyroidism of renal origin Assessment No labs today Plan We will start patient on Zemplar Patient has Klebsiella UTI. I will start the patient on Levaquin. follow BMP Subjective Subjective feels ok Objective Objective Last 24 Hour Vital Signs Date Time Temp Pulse Resp B/P (MAP) Pulse Ox O2 Delivery O2 Flow Rate FiO2 08/16/18 09:22 104/50 08/16/18 09:21 73 104/50 08/16/18 09:00 Nasal Cannula 2.0 08/16/18 08:00 97.5 73 20 104/50 (68) 97 08/16/18 07:42 106 08/16/18 04:00 97.9 52 20 105/62 (76) 97 08/16/18 04:00 98 08/16/18 00:00 98.0 53 20 115/61 (79) 99 08/16/18 00:00 110 08/15/18 23:08 97.5 08/15/18 21:00 85 107/68 08/15/18 20:00 118 08/15/18 20:00 98.0 85 16 107/68 (81) 100 08/15/18 18:00 Nasal Cannula 2.0 08/15/18 16:00 97.5 110 16 98/60 (73) 99 08/15/18 15:47 115 08/15/18 15:19 114 Intake and Output 08/15/18 08/16/18 19:00 07:00 Intake Total 100 ml Balance 100 ml Intake Oral 100 ml # Voids 1 # Bowel Movements 2 Laboratory Tests 08/15/18 17:45: Sodium Level 137, Potassium Level 4.7, Chloride Level 101, Carbon Dioxide Level 27, Anion Gap 9, Blood Urea Nitrogen 76H, Creatinine 2.6H, Estimat Glomerular Filtration Rate , Glucose Level 134H, Calcium Level 10.1 Height (Feet): 5 Height (Inches): 6.00 Weight (Pounds): 200 Cardiovascular: normal rate Respiratory/Chest: lungs clear Extremities: other - No edema Corbin Pearl MD Aug 16, 2018 12:21
--- NOTE | 2018-08-16 13:13 | History and Physical Report ---
DATE OF ADMISSION: 08/12/2018 HISTORY OF PRESENT ILLNESS: The patient is an unfortunate 83-year-old female with a complex past medical history including history of diabetes, CHF, AFib, pacemaker, CAD, status post stent, history of CVA in the past, history of defibrillator, who apparently was taken to an outside hospital after her defibrillator fired 3 shocks. The patient was taken to [facility] where Dr. Grier, the earth moving technician, was notified and he arranged for direct admission to [facility]. The patient currently denies any shortness of breath. She did feel pressure in her chest. Denies any fevers, chills or palpitations. No abdominal pain. No nausea or vomiting. No changes in bowel habits. No urinary symptoms. PAST MEDICAL HISTORY: Includes history of CAD and stent, history of presyncope, history of pacemaker implantation for sick sinus syndrome pacemaker was upgraded to a biventricular ICD by Dr. 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 She did undergo angioplasty and stenting of the right cavernous back in September 2016. She had a history of intracranial carotid stenosis. She has a history of pulmonary hypertension, history of type 2 diabetes mellitus, history of chronic diastolic heart failure, history of , history of hyperlipidemia, history of hypothyroidism, history of anemia, history of cataract surgery, history of surgery on the left eye due to glaucoma, history of 2 cm colonic adenomatous polyps on colonoscopy, history of gastritis in the gastric cardia, history of recurrent CHF with recurrent pleural effusion, for which she underwent right-sided video-assisted thoracoscopic surgery and pleurodesis by in July 2017, history of right-sided tenosynovitis, history of left arm hematoma after history of cellulitis of the left arm in the past. ALLERGIES: Allergic to morphine. SOCIAL HISTORY: She does not smoke, does not drink any alcohol, does not use any drugs. She has a very supportive family. REVIEW OF SYSTEMS: A 12-point review of systems reviewed and negative except for the above. PHYSICAL EXAMINATION: GENERAL: She is well developed, well nourished, currently in no apparent distress. VITAL SIGNS: Stable. HEENT: Head is normocephalic, atraumatic. Pupils are equal and reactive to light. Extraocular muscles are intact. Eyes are anicteric. NECK: Supple. No JVD. LUNGS: Clear. HEART: Regular. ABDOMEN: Soft. Positive bowel sounds. Nondistended. Nontender. . There is no sign of infection. EXTREMITIES: No clubbing, cyanosis, or edema. NEURO: She is alert, nonfocal. PSYCH: Normal mood and affect. LABORATORY DATA: Labs are pending. ASSESSMENT AND PLAN: The patient is an unfortunate 83-year-old female, transferred from [facility] after getting 3 ICD shocks, arranged by Dr. Grier to [facility]. Labs have been ordered including CBC, complete metabolic panel, magnesium, troponin. Echo has been ordered as well. The patient's defibrillator will need to be interrogated. Dr. Grier will be seeing her and will continue her current medications . For diabetes, monitor Accu-Cheks, insulin sliding scale. The patient should be on DVT and ulcer prophylaxis. Trae Calvo M.D. DR: YAMILETH JOB#: [id number] CC:
[2018-08-16 16:00] VITALS: BP 108/51
--- NOTE | 2018-08-16 16:13 | Cardiac Electrophysiology PN ---
Assessment/Plan Assessment/Plan 1. Defibrillator discharges from right ventricular lead artifact. It is possible that the RV lead has been pulled back and double counting causing defibrillator discharge. The patient has a capped right ventricular pacing lead from an old pacemaker. The new device is a DF4 device and we cannot use that old pacing lead for RV sensing. Awaiting transfer to [facility] as the patient would need a right ventricular lead revision. This may be in the form of repositioning the existing lead that may cause better capture threshold, or maybe able to remove the lead and place a new right ventricular sensing and shocking lead with the existing defibrillator. I discussed with the patient and the family the risks, benefits, and alternatives of therapy and they agreed and would like to proceed. In the meantime, we will stop Xarelto a couple of days prior to scheduled procedure that is on the schedule on 08/17/18. Since the patient is pacemaker dependent, we will put right ventricular transvenous lead as a backup 2. History of paroxysmal atrial fibrillation, on amiodarone 200 mg daily and Coreg 6.25 mg b.i.d. Xarelto held for procedure tomorrow. 3. History of recurrent pleural effusion, status post VATS and pleurodesis, with doxycycline in July 2017. 4. COPD. 5. History of severe anemia. 6. Cardiomyopathy, ejection fraction of 32%, on Coreg, Lasix, Aldactone, and losartan. DW [facility] Transfer [facility] On Schedule for tomorrow Subjective Subjective Remained V paced. No CP or SOB. Awaiting transfer to [facility] for ICD lead revision Objective Last 24 Hour Vital Signs Date Time Temp Pulse Resp B/P (MAP) Pulse Ox O2 Delivery O2 Flow Rate FiO2 08/16/18 12:00 90 08/16/18 12:00 96.8 106 18 143/91 (108) 100 08/16/18 09:22 104/50 08/16/18 09:21 73 104/50 08/16/18 09:00 Nasal Cannula 2.0 08/16/18 08:00 97.5 73 20 104/50 (68) 97 08/16/18 07:42 106 08/16/18 04:00 97.9 52 20 105/62 (76) 97 08/16/18 04:00 98 08/16/18 00:00 98.0 53 20 115/61 (79) 99 08/16/18 00:00 110 08/15/18 23:08 97.5 08/15/18 21:00 85 107/68 08/15/18 20:00 118 08/15/18 20:00 98.0 85 16 107/68 (81) 100 08/15/18 18:00 Nasal Cannula 2.0 Intake and Output 08/15/18 08/16/18 18:59 06:59 Intake Total 100 ml Balance 100 ml Intake Oral 100 ml # Voids 1 # Bowel Movements 2 Laboratory Tests Test 08/15/18 17:45 Sodium Level 137 MMOL/L (136-145) Potassium Level 4.7 MMOL/L (3.5-5.1) Chloride Level 101 MMOL/L (98-107) Carbon Dioxide Level 27 MMOL/L (21-32) Anion Gap 9 mmol/L (5-15) Blood Urea Nitrogen 76 mg/dL (7-18) H Creatinine 2.6 MG/DL (0.55-1.30) H Estimat Glomerular Filtration Rate mL/min (>60) Glucose Level 134 MG/DL (74-106) H Calcium Level 10.1 MG/DL (8.5-10.1) Microbiology Date/Time Source Procedure Growth Status 08/14/18 18:00 Urine,Clean Catch Urine Culture - Final Klebsiella Pneumoniae Complete Objective HEAD AND NECK: No JVD. LUNGS: Clear. CARDIOVASCULAR: Regular S1 and S2 with no gallop or murmur. ABDOMEN: Soft. EXTREMITIES: No pitting edema. SKIN: Defibrillator in left subclavian is intact. Gonzalez Grier MD Aug 16, 2018 16:13
--- NOTE | 2018-08-16 16:50 | NUR ---
NURSE NOTES: Dr Grier at bedside,pt will be NPO post MN for Pacemaker insertion in am at [facility].Pt will be pharmacy picking tech here tomorrow at 11am going to [facility] cardiac solid waste management engineer.Pt aware and informed re plans,verbalized understanding.
--- NOTE | 2018-08-16 17:00 | NUR ---
Social Service Note LEYDA spoke with Stacey at [facility] transfer Center [phone] and confirmed transfer tomorrow 08/17. [employer] transportation arranged with [employer], [phone], pick up driver time at 11:15am. [address] [facility] [address] [address] Pre-Op Bed assignment will be provided once nurse giving report at 10:30am to [phone]. Procedure scheduled for 1400. LEYDA informed patient's dgt Zohreh Jones [phone] of impending transfer. LEYDA discussed with charge nurse.
--- NOTE | 2018-08-16 19:30 | NUR ---
HAND-OFF: Report given to Beth Guzman RN.
[2018-08-16 20:00] VITALS: BP 110/60
--- NOTE | 2018-08-16 20:04 | NUR ---
NURSE NOTES: Received bedside report from ANNABELLE Campos.Patient stable,A&Ox4,V-Paced on undercollar baster,tolerated N/C w/2 L/min well,lungs clear to auscultation,BS active in all quadrants,IV asymptomatic,Lf/arm G24 HL,bed secured,call light within a reach,will continue to monitor and follow POC.
--- NOTE | 2018-08-16 20:44 | Cardiology Report ---
APPROVED REPORT EXAM: Two-dimensional and M-mode echocardiogram with Doppler and color Doppler. INDICATION Ejection Fraction M-Mode DIMENSIONS IVSd1.4 (0.7-1.1cm)Left Atrium (MM)3.9 (1.6-4.0cm) LVDd4.2 (3.5-5.6cm)Aortic Root2.6 (2.0-3.7cm) PWd1.3 (0.7-1.1cm)Aortic Cusp Exc.1.8 (1.5-2.0cm) LVDs2.9 (2.5-4.0cm) PWs1.6 cm Normal left ventricular chamber size. Mid to apical anterosepotal wall dyskinesia is likely due to pacing effect. Left ventricular ejection fraction is estimated to be 50%. Mild left ventricular hypertrophy. No evidence of pericardial effusion. Mild bi-atrial enlargement by 2D. Mild right ventricular enlargement. Focal aortic valve sclerosis with adequate cusp excursion. Moderately thickened mitral valve leaflets with reduced excursion. Mild mitral annulus and aortic root calcification. Pulmonic valve not well visualized. Normal tricuspid valve structure. IVC dilated at 2.4 cm with physiological collapse, suggestive of increased RA pressure. A color flow and spectral Doppler study was performed and revealed: Mild aortic insufficiency. Trace mitral regurgitation. Mitral inflow velocities cannot be assessed due to atrial arrhythmia. Severe tricuspid regurgitation. Tricuspid systolic velocities suggests peak right ventricular systolic pressure of 60 mmHg, consistent with severe pulmonary hypertension. Trace pulmonic regurgitation present.
[2018-08-16] MEDS: Atorvastatin 20mg tab ORAL SCH (21:14)
--- NOTE | 2018-08-16 22:04 | General Progress Note ---
Assessment/Plan Assessment/Plan NIKKI Medina has BIVICD chf cad COPD ho CVA anemia diabetes pafib htn cards fup, awaiting arrangment for transfer to [facility] hygiene monitor labs bp stable accuchecks noted dvt and ulcer prohylaxis Subjective Allergies: Coded Allergies: MORPHINE (Verified Allergy, Unknown, 08/12/18) Subjective no chest pain or sob Objective Last 24 Hour Vital Signs Date Time Temp Pulse Resp B/P (MAP) Pulse Ox O2 Delivery O2 Flow Rate FiO2 08/16/18 21:00 52 110/60 08/16/18 21:00 Nasal Cannula 2.0 08/16/18 20:00 98.4 52 16 110/60 (77) 98 08/16/18 19:11 103 08/16/18 16:00 97.5 79 20 108/51 (70) 98 08/16/18 16:00 76 08/16/18 12:00 90 08/16/18 12:00 96.8 106 18 143/91 (108) 100 08/16/18 09:22 104/50 08/16/18 09:21 73 104/50 08/16/18 09:00 Nasal Cannula 2.0 08/16/18 08:00 97.5 73 20 104/50 (68) 97 08/16/18 07:42 106 08/16/18 04:00 97.9 52 20 105/62 (76) 97 08/16/18 04:00 98 08/16/18 00:00 98.0 53 20 115/61 (79) 99 08/16/18 00:00 110 08/15/18 23:08 97.5 Intake and Output 08/15/18 08/16/18 18:59 06:59 Intake Total 100 ml Balance 100 ml Intake Oral 100 ml # Voids 1 # Bowel Movements 2 Height (Feet): 5 Height (Inches): 6.00 Weight (Pounds): 200 General Appearance: WD/WN, no apparent distress Neck: supple Cardiovascular: normal rate Trae Calvo MD Aug 16, 2018 22:04
[2018-08-17] VITALS: BP 127/58
[2018-08-17 04:00] VITALS: BP 125/61
[2018-08-17 05:40] LABS: BASOPHILS % (AUTO) 1.2 % (0.0-2.0); EOSINOPHILS % (AUTO) 0.4 % (0.0-3.0); HEMOGLOBIN 12.1 G/DL (12.0-16.0); LYMPHOCYTES % (AUTO) 14.7 % (20.0-45.0); MEAN CORPUSCULAR VOLUME 96 FL (80-99); MONOCYTES % (AUTO) 11.8 % (1.0-10.0); NEUTROPHILS % (AUTO) 71.9 % (45.0-75.0); PLATELET COUNT 130 K/UL (150-450); RED BLOOD COUNT 3.94 M/UL (4.20-5.40); RED CELL DISTRIBUTION WIDTH 15.6 % (11.6-14.8); WHITE BLOOD COUNT 5.5 K/UL (4.8-10.8)
[2018-08-17 06:03] LABS: ANION GAP 6 mmol/L (5-15); BLOOD UREA NITROGEN 75 mg/dL (7-18); CALCIUM 10.1 MG/DL (8.5-10.1); CARBON DIOXIDE 26 MMOL/L (21-32); CHLORIDE 101 MMOL/L (98-107); CREATININE 2.5 MG/DL (0.55-1.30); POTASSIUM 4.5 MMOL/L (3.5-5.1); SODIUM 133 MMOL/L (136-145)
[2018-08-17] MEDS: NovoLOG Insulin Flexpen SUBQ SCH (06:30)
[2018-08-17] MEDS: sitaGLIPtin 25mg tab ORAL SCH (06:30)
--- NOTE | 2018-08-17 07:16 | NUR ---
HAND-OFF: Report given to ANNABELLE Lucas.Patient stable.
--- NOTE | 2018-08-17 07:17 | NUR ---
NURSE NOTES: RECEIVED PATIENT FROM Niurka DAVENPORT RN. PATIENT IS SEEN LYING IN BED, RESTING. HOOKED TO JANITORIAL MAINTENANCE WORKER. ON 2L NC. NPO. FOR PROCEDURE IN [facility] TODAY. IV ON L FA G24, SL. JESSIE LIGHT WITHIN REACH. SIDE RAILS UP. BED AT LOWEST POSITION. WILL CONTINUE TO MONITOR.
[2018-08-17 08:00] VITALS: BP 105/62
[2018-08-17 09:00] VITALS: BP 125/61
[2018-08-17] MEDS: Docusate 100mg cap ORAL SCH (09:00)
[2018-08-17] MEDS ORDERED: Paricalcitol 1mcg cap ORAL SCH (09:00)
[2018-08-17] MEDS: Carvedilol 6.25mg Tab ORAL SCH (09:00)
[2018-08-17] MEDS: Spironolactone 25mg tab ORAL SCH (09:00)
[2018-08-17] MEDS: Allopurinol 100mg Tab ORAL SCH (09:00)
[2018-08-17] MEDS: Amiodarone 200mg tab ORAL SCH (09:00)
[2018-08-17] MEDS: Losartan 25mg tab ORAL SCH (09:00)
--- NOTE | 2018-08-17 10:03 | NUR ---
NURSE NOTES: PATIENT KEPT CLEAN AND DRY. NO SIGNS OF DISTRESS. WILL CONTINUE TO MONITOR.
--- NOTE | 2018-08-17 10:58 | Cardiac Electrophysiology PN ---
Assessment/Plan Assessment/Plan 1. Defibrillator discharges from right ventricular lead artifact. It is possible that the RV lead has been pulled back and double counting causing defibrillator discharge. The patient has a capped right ventricular pacing lead from an old pacemaker. The new device is a DF4 device and we cannot use that old pacing lead for RV sensing. Awaiting transfer to [facility] as the patient would need a right ventricular lead revision. This may be in the form of repositioning the existing lead that may cause better capture threshold, or maybe able to remove the lead and place a new right ventricular sensing and shocking lead with the existing defibrillator. I discussed with the patient and the family the risks, benefits, and alternatives of therapy and they agreed and would like to proceed. Off Xarelto x 2 days. Since the patient is pacemaker dependent, we will put right ventricular transvenous lead as a backup 2. History of paroxysmal atrial fibrillation, on amiodarone 200 mg daily and Coreg 6.25 mg b.i.d. Xarelto held for procedure 3. History of recurrent pleural effusion, status post VATS and pleurodesis, with doxycycline in July 2017. 4. COPD. 5. History of severe anemia. 6. Cardiomyopathy, ejection fraction of 32%, on Coreg, Lasix, Aldactone, and losartan. Being picked up at 11 today for her procedure today at 2 at [facility] Subjective Subjective Remained V paced. No CP or SOB. Awaiting transfer to [facility] for ICD lead revision today. Is NPO Objective Last 24 Hour Vital Signs Date Time Temp Pulse Resp B/P (MAP) Pulse Ox O2 Delivery O2 Flow Rate FiO2 08/17/18 09:00 125/61 08/17/18 09:00 104 125/61 08/17/18 08:00 97.2 125 21 105/62 (76) 100 08/17/18 08:00 Nasal Cannula 2.0 08/17/18 04:08 104 08/17/18 04:00 98.1 126 16 125/61 (82) 100 08/17/18 00:00 97.8 107 16 127/58 (81) 99 08/16/18 23:40 122 08/16/18 21:00 52 110/60 08/16/18 21:00 Nasal Cannula 2.0 08/16/18 20:00 98.4 52 16 110/60 (77) 98 08/16/18 19:11 103 3/14/19 16:00 97.5 79 20 108/51 (70) 98 08/16/18 16:00 76 08/16/18 12:00 90 08/16/18 12:00 96.8 106 18 143/91 (108) 100 Intake and Output 08/16/18 08/17/18 19:00 07:00 Intake Total 744 ml Balance 744 ml Intake Oral 744 ml # Voids 3 # Bowel Movements 2 Laboratory Tests Test 08/17/18 04:00 White Blood Count 5.5 K/UL (4.8-10.8) Red Blood Count 3.94 M/UL (4.20-5.40) L Hemoglobin 12.1 G/DL (12.0-16.0) Hematocrit 38.0 % (37.0-47.0) Mean Corpuscular Volume 96 FL (80-99) Mean Corpuscular Hemoglobin 30.7 PG (27.0-31.0) Mean Corpuscular Hemoglobin Concent 31.8 G/DL (32.0-36.0) L Red Cell Distribution Width 15.6 % (11.6-14.8) H Platelet Count 130 K/UL (150-450) L Mean Platelet Volume 11.5 FL (6.5-10.1) H Neutrophils (%) (Auto) 71.9 % (45.0-75.0) Lymphocytes (%) (Auto) 14.7 % (20.0-45.0) L Monocytes (%) (Auto) 11.8 % (1.0-10.0) H Eosinophils (%) (Auto) 0.4 % (0.0-3.0) Basophils (%) (Auto) 1.2 % (0.0-2.0) Sodium Level 133 MMOL/L (136-145) L Potassium Level 4.5 MMOL/L (3.5-5.1) Chloride Level 101 MMOL/L (98-107) Carbon Dioxide Level 26 MMOL/L (21-32) Anion Gap 6 mmol/L (5-15) Blood Urea Nitrogen 75 mg/dL (7-18) H Creatinine 2.5 MG/DL (0.55-1.30) H Estimat Glomerular Filtration Rate mL/min (>60) Glucose Level 201 MG/DL (74-106) H Calcium Level 10.1 MG/DL (8.5-10.1) Microbiology Date/Time Source Procedure Growth Status 08/14/18 18:00 Urine,Clean Catch Urine Culture - Final Klebsiella Pneumoniae Complete Objective HEAD AND NECK: No JVD. LUNGS: Clear. CARDIOVASCULAR: Regular S1 and S2 with no gallop or murmur. ABDOMEN: Soft. EXTREMITIES: No pitting edema. SKIN: Defibrillator in left subclavian is intact. Gonzalez Grier MD Aug 17, 2018 10:58
--- NOTE | 2018-08-17 11:15 | NUR ---
NURSE NOTES: REPORT GIVEN TO [id number] WITH PATIENTS PACKET AND BELONGINGS. REMAINS STABLE. DGT AND MD AWARE OF TRANSFER.
--- NOTE | 2018-08-17 11:19 | NUR ---
INTER-FACILITY TRANSFER: Patient transferred to [facility] , per [facility]. Report given to ANNABELLE BURDICK. Patient transferred with valuables. Belongings verified upon transferr and remained with the patient. Dgt notified of transfer.
--- NOTE | 2018-08-17 11:24 | Nephrology Progress Note ---
Assessment/Plan Problem List: (1) Pacemaker malfunction (2) CKD (chronic kidney disease) Assessment: stable (3) DM (diabetes mellitus) (4) HTN (hypertension) Assessment: ok (5) Cardiomyopathy (6) UTI (urinary tract infection) (7) Secondary hyperparathyroidism of renal origin Assessment No labs today Plan continue Zemplar abxs transfer to [facility] Discussed with Dr Grier Subjective Subjective feels ok Objective Objective Last 24 Hour Vital Signs Date Time Temp Pulse Resp B/P (MAP) Pulse Ox O2 Delivery O2 Flow Rate FiO2 08/17/18 09:00 125/61 08/17/18 09:00 104 125/61 08/17/18 08:00 97.2 125 21 105/62 (76) 100 08/17/18 08:00 Nasal Cannula 2.0 08/17/18 04:08 104 08/17/18 04:00 98.1 126 16 125/61 (82) 100 08/17/18 00:00 97.8 107 16 127/58 (81) 99 08/16/18 23:40 122 08/16/18 21:00 52 110/60 08/16/18 21:00 Nasal Cannula 2.0 08/16/18 20:00 98.4 52 16 110/60 (77) 98 08/16/18 19:11 103 08/16/18 16:00 97.5 79 20 108/51 (70) 98 08/16/18 16:00 76 08/16/18 12:00 90 08/16/18 12:00 96.8 106 18 143/91 (108) 100 Intake and Output 08/16/18 08/17/18 19:00 07:00 Intake Total 744 ml Balance 744 ml Intake Oral 744 ml # Voids 3 # Bowel Movements 2 Laboratory Tests 08/17/18 04:00: White Blood Count 5.5, Red Blood Count 3.94L, Hemoglobin 12.1, Hematocrit 38.0, Mean Corpuscular Volume 96, Mean Corpuscular Hemoglobin 30.7, Mean Corpuscular Hemoglobin Concent 31.8L, Red Cell Distribution Width 15.6H, Platelet Count 130L , Mean Platelet Volume 11.5H, Neutrophils (%) (Auto) 71.9, Lymphocytes (%) (Auto ) 14.7L, Monocytes (%) (Auto) 11.8H, Eosinophils (%) (Auto) 0.4, Basophils (%) ( Auto) 1.2, Sodium Level 133L, Potassium Level 4.5, Chloride Level 101, Carbon Dioxide Level 26, Anion Gap 6, Blood Urea Nitrogen 75H, Creatinine 2.5H, Estimat Glomerular Filtration Rate , Glucose Level 201H, Calcium Level 10.1 Height (Feet): 5 Height (Inches): 6.00 Weight (Pounds): 201 Cardiovascular: normal rate Respiratory/Chest: lungs clear Corbin Pearl MD Aug 17, 2018 11:24
--- NOTE | 2018-08-20 13:22 | Discharge Summary ---
Discharge Summary Discharge Summary _ DATE OF ADMISSION: 08/12/2018 DATE OF DISCHARGE: 08/17/2018 DISCHARGED BY: Dr. Calvo REASON FOR ADMISSION: 83 years old female with past medical history of diabetes, congestive heart failure, atrial fibrillation, defibrillator, coronary artery disease, status post stent, history of CVA, was taken to [facility] after her defibrillator fired 3 shocks. Patient with history of severe cardiomyopathy with ejection fraction of 32% , who underwent cardiac catheterization in 2018, that showed no evidence of significant coronary disease . Patient had a history of pacemaker implantation , upgraded to [employer] biventricular defibrillator on March 31, 2008 at [facility]. Sales Merchandiser Dr. Florence was notified to arrange for direct admission to [facility] for further management. Upon admission patient denied shortness of breath , but reported chest pressure. She denied fever ,chills or palpitation No abdominal pain, no nausea, no vomiting, no change in bowel habits, no urinary symptoms. Patient subsequently was admitted to direct observational unit for further management. CONSULTANTS: purchasing supervisor Dr. Florence supervisor carton and can supply Dr. Pearl [facility] COURSE: Patient admitted. Cardiology and nephrology closely followed. Echocardiogram revealed ejection fraction of 50 % with mild left ventricular hypertrophy. No evidence of pericardial effusion. Mid to apical anteroseptal wall dyskinesia, likely due to pacing effect. Severe tricuspid regurgitation.. Right ventricular systolic pressure of 60 consistent with severe pulmonary hypertension. Lipid panel was stable. Initial troponin - 0.109 and repeated 0.089. EKG revealed sinus rhythm , no acute ischemic changes. Pro BNP 2338. Troponin elevation minimal, levels flat. Troponin elevation was not consistent with acute coronary syndrome. Likely troponin leak secondary to chronic renal failure. Per purchasing supervisor , it was possible that the RV lead had been pulled back and double counting may cause defibrillator discharge. The patient had a capped right ventricular pacing lead from an old pacemaker. The new device is a DF4 device and old pacing lead for RV sensing unable to be used. Patient required transfer to [facility]/higher level of care for right ventricular lead revision . Patient and family consented to procedure. Patient was off Xarelto . Since patient was pacemaker dependent, plan was to put right ventricular transvenous lead as a backup. Patient with history of paroxysmal atrial fibrillation. Heart rate was controlled with amiodarone and Coreg. Xarelto on hold for procedure. Patient had a history of recurrent pleural effusion ,status post VATS and pleurodesis with doxycycline in July 2017 . Supplemental oxygen provided as needed to keep pulse oximetry above 92%. Pulmonary toilet provided as needed. Respiratory status was stable. Medical management of congestive heart failure was continued with f beta- jake, ARB, and diuretics: Lasix and Aldactone. Volumes were closely monitored. Egg Sorter followed. Renal parameters and electrolytes closely monitored. Electrolytes corrected as needed. Nephrotoxins were avoided. Elevated PTH .Zemplar was continued. Creatinine without change from initial 2.7 down to 2.5. Lipid panel stable. TSH within normal limits. Renal ultrasound revealed no evidence of hydronephrosis. Normal bilateral kidney echogenicity. Levothyroxine continued . TSH within normal limits Bowel regimen instituted. Supportive care provided. Blood sugar was managed with sliding scale of insulin. Urine culture with growth of Klebsiella. Antibiotic provided for treatment of UTI. Hemoglobin and hematocrit were closely monitored with goal to keep hemoglobin above 7, remained at baseline. Placement was arranged, and patient subsequently was transferred to [facility] via [facility] ambulance for further management. FINAL DIAGNOSES Defibrillator discharge from right ventricular lead artifact Defibrillator dysfunction History of paroxysmal atrial fibrillation History of recurrent pleural effusion, status post VATS and pleurodesis COPD History of severe anemia Nonischemic cardiomyopathy Diabetes mellitus Hypertension Chronic kidney disease UTI with Klebsiella Anemia History of CVA Coronary artery disease DISCHARGE MEDICATIONS: List of medication was sent to accepting facility. DISCHARGE INSTRUCTIONS: Patient was transferred to higher level of care /[facility] - for cardiac procedure. I have been assigned to dictate discharge summary for this account. I was not involved in the patient's management. Lorena Musa NP Aug 20, 2018 13:22
== END 2018-08-17 11:58 | disposition short-term general hospital (02) | DRG 309 ==
LOC: 2W 18:45
DX: T82.110A Breakdown (mechanical) of cardiac electrode, initial encounter (principal); I42.8 Other cardiomyopathies; N39.0 Urinary tract infection, site not specified; I13.0 Hypertensive heart and chronic kidney disease with heart failure and stage 1 through stage 4 chronic kidney disease, or unspecified chronic kidney disease; N25.81 Secondary hyperparathyroidism of renal origin; Y83.8 Other surgical procedures as the cause of abnormal reaction of the patient, or of later complication, without mention of misadventure at the time of the procedure; I48.0 Paroxysmal atrial fibrillation; Z88.6 Allergy status to analgesic agent; J44.9 Chronic obstructive pulmonary disease, unspecified; N18.9 Chronic kidney disease, unspecified; B96.1 Klebsiella pneumoniae [K. pneumoniae] as the cause of diseases classified elsewhere; D64.9 Anemia, unspecified; Z86.73 Personal history of transient ischemic attack (TIA), and cerebral infarction without residual deficits; I25.10 Atherosclerotic heart disease of native coronary artery without angina pectoris; Z79.01 Long term (current) use of anticoagulants; Z79.02 Long term (current) use of antithrombotics/antiplatelets; E11.22 Type 2 diabetes mellitus with diabetic chronic kidney disease; I50.9 Heart failure, unspecified; H54.61 Unqualified visual loss, right eye, normal vision left eye; Z95.5 Presence of coronary angioplasty implant and graft
CPT/HCPCS: 36415; 76770; 80048; 80053; 80061; 81001; 82306; 82962; 83036; 83735; 83880; 83970; 84100; 84443; 84484; 85025; 87081; 87086; 87181; 93005; 93306; J1815

== ENCOUNTER 2018-08-23 13:12 | Inpatient (IN) | payer MEDICARE ==
[~2018-08-23] VITALS: Ht 167.6 cm; Wt 81.6 kg
[~2018-08-23 13:12] MED LIST: AMIODARONE HCL400 M1 ORAL; CARVEDILOL6.25 MG ORAL; FAMOTIDINE20 MG ORAL; FUROSEMIDE40 MG ORAL; JANUVIA25 MG ORAL; KLOR-CON 1010 MEQ ORAL; LIPITOR80 MG ORAL; LOSARTAN POTASS25 MG ORAL; NATEGLINIDE120 MG PO; PANTOPRAZOLE SO40 MG ORAL; PLAVIX75 MG ORAL; SPIRONOLACTONE25 MG ORAL; SYNTHROID100 MCG ORAL; VITAMIN D250000 UNI1 ORAL; ZYLOPRIM100 MG ORAL; [UNRECOGNIZED DRUG - OTHER] PO
[2018-08-23 13:35] VITALS: BP 113/62
--- NOTE | 2018-08-23 13:35 | NUR ---
ED Nurse Note: pt brought by family member from Dr. Rebolledo office due to bleeding from pacemaker surgical site. pt had pacemaker on left upper chest last Monday. noticed bleeding since last night. denies any injury or trauma. denies any CP, SOB or dizziness. AAO x4. respirations even and non-labored noted. skin warm to touch. no open wound noted. no active bleeding noted. Dr. Harrell at the bed side. will wait for the further order.
--- NOTE | 2018-08-23 13:40 | NUR ---
ED Nurse Note: Received verbal order from Dr. Harrell for surgicel. Dr. Harrell states he will input order
[2018-08-23] MEDS ORDERED: cefTRIAXone 1 GM in NS 55 ML IVPB ONE (13:45)
[2018-08-23] MEDS ORDERED: Surgicel 4in x 8in TOPIC ONE (13:45)
[2018-08-23 14:30] LABS: HEMATOCRIT 33.1 % (37.0-47.0); HEMOGLOBIN 10.5 G/DL (12.0-16.0); MEAN CORPUSCULAR VOLUME 97 FL (80-99); PLATELET COUNT 99 K/UL (150-450); RED BLOOD COUNT 3.42 M/UL (4.20-5.40); RED CELL DISTRIBUTION WIDTH 16.1 % (11.6-14.8); WHITE BLOOD COUNT 6.3 K/UL (4.8-10.8)
[2018-08-23 14:43] LABS: ANION GAP 7 mmol/L (5-15); BLOOD UREA NITROGEN 52 mg/dL (7-18); CALCIUM 10.1 MG/DL (8.5-10.1); CARBON DIOXIDE 32 MMOL/L (21-32); CHLORIDE 101 MMOL/L (98-107); CREATININE 2.3 MG/DL (0.55-1.30); POTASSIUM 4.8 MMOL/L (3.5-5.1); SODIUM 139 MMOL/L (136-145)
[2018-08-23 14:47] LABS: INR 1.5 (0.9-1.1)
[2018-08-23 14:48] LABS: ALANINE AMINOTRANSFERASE 15 U/L (12-78); ALBUMIN 3.6 G/DL (3.4-5.0); ALBUMIN/GLOBULIN RATIO 0.9 (1.0-2.7); ALKALINE PHOSPHATASE 100 U/L (46-116); ASPARTATE AMINO TRANSFERASE 20 U/L (15-37); BILIRUBIN,TOTAL 0.8 MG/DL (0.2-1.0)
--- NOTE | 2018-08-23 15:30 | NUR ---
ED Nurse Note: Dr. Rebolledo at the bed side. two dermabond provide as requested.
--- NOTE | 2018-08-23 17:58 | Cardiac Electrophysiology PN ---
Subjective Subjective [id number] Objective Last 24 Hour Vital Signs Date Time Temp Pulse Resp B/P (MAP) Pulse Ox O2 Delivery O2 Flow Rate FiO2 08/23/18 13:35 60 18 Room Air 08/23/18 13:35 98.2 60 18 113/62 98 Room Air 08/23/18 13:25 98.2 60 18 113/62 98 Room Air Laboratory Tests Test 08/23/18 14:18 White Blood Count 6.3 K/UL (4.8-10.8) Red Blood Count 3.42 M/UL (4.20-5.40) L Hemoglobin 10.5 G/DL (12.0-16.0) L Hematocrit 33.1 % (37.0-47.0) L Mean Corpuscular Volume 97 FL (80-99) Mean Corpuscular Hemoglobin 30.6 PG (27.0-31.0) Mean Corpuscular Hemoglobin Concent 31.6 G/DL (32.0-36.0) L Red Cell Distribution Width 16.1 % (11.6-14.8) H Platelet Count 99 K/UL (150-450) L Mean Platelet Volume 12.6 FL (6.5-10.1) H Neutrophils (%) (Auto) % (45.0-75.0) Lymphocytes (%) (Auto) % (20.0-45.0) Monocytes (%) (Auto) % (1.0-10.0) Eosinophils (%) (Auto) % (0.0-3.0) Basophils (%) (Auto) % (0.0-2.0) Differential Total Cells Counted 100 Neutrophils % (Manual) 87 % (45-75) H Lymphocytes % (Manual) 6 % (20-45) L Monocytes % (Manual) 6 % (1-10) Eosinophils % (Manual) 1 % (0-3) Basophils % (Manual) 0 % (0-2) Band Neutrophils 0 % (0-8) Platelet Estimate Decreased L Platelet Morphology Normal Polychromasia 1+ Hypochromasia 2+ Anisocytosis 1+ Macrocytosis 1+ Prothrombin Time 15.3 SEC (9.30-11.50) H Prothromb Time International Ratio 1.5 (0.9-1.1) H Activated Partial Thromboplast Time 37 SEC (23-33) H Sodium Level 139 MMOL/L (136-145) Potassium Level 4.8 MMOL/L (3.5-5.1) Chloride Level 101 MMOL/L (98-107) Carbon Dioxide Level 32 MMOL/L (21-32) Anion Gap 7 mmol/L (5-15) Blood Urea Nitrogen 52 mg/dL (7-18) H Creatinine 2.3 MG/DL (0.55-1.30) H Estimat Glomerular Filtration Rate mL/min (>60) Glucose Level 211 MG/DL (74-106) H Calcium Level 10.1 MG/DL (8.5-10.1) Total Bilirubin 0.8 MG/DL (0.2-1.0) Aspartate Amino Transf (AST/SGOT) 20 U/L (15-37) Alanine Aminotransferase (ALT/SGPT) 15 U/L (12-78) Alkaline Phosphatase 100 U/L (46-116) Total Protein 7.8 G/DL (6.4-8.2) Albumin 3.6 G/DL (3.4-5.0) Globulin 4.2 g/dL Albumin/Globulin Ratio 0.9 (1.0-2.7) L Gonzalez Grier MD Aug 23, 2018 17:58
[2018-08-23 18:00] VITALS: BP 125/98
--- NOTE | 2018-08-23 18:34 | NUR ---
ED Nurse Note: per [facility] charge nurse, sent pt after shift change.
--- NOTE | 2018-08-23 19:30 | NUR ---
HAND-OFF: Report given to ANNABELLE Morrell.
--- NOTE | 2018-08-23 19:34 | NUR ---
ED Nurse Note: attempted giving report, receiving RN maeve currently unavailable, will call back in 5 min.
--- NOTE | 2018-08-23 19:48 | NUR ---
NURSE NOTES: Received telephone report from ANNABELLE Morrell (ED nurse)
--- NOTE | 2018-08-23 19:50 | NUR ---
ED Nurse Note: report given to ANNABELLE Marsh to continue care, pt transferring to [place], all belongings sent w/ pt, dressing intact on pacemaker site, no active bleeding at this time, VSS, resp even and unlabored on RA.
[2018-08-23 20:00] VITALS: BP 141/60
--- NOTE | 2018-08-23 20:00 | NUR ---
NURSE NOTES: Received pt via [facility] from ED. Pt in bed, a&ox4, in room air. No s/s of acute distress & no c/o pain at this time. Belongings signed & accounted for. Oriented pt to hospital facility. Skin intact. IV site intact & S/L'd. Called Dr. perez for admission orders. Bed in lowest position, call light within reach. Will continue to monitor.
[2018-08-23] MEDS: Carvedilol 6.25mg Tab ORAL SCH (22:07)
[2018-08-23] MEDS: ceFAZolin 0.5gm in D5W 55ml IV SCH (22:07)
[2018-08-23] MEDS ORDERED: Tums 500mg ORAL PRN (22:15)
[2018-08-23] MEDS: NovoLOG Insulin Flexpen SUBQ SCH (22:15)
[2018-08-24] VITALS: BP 94/60
[2018-08-24 04:00] VITALS: BP 124/55
--- NOTE | 2018-08-24 04:36 | History and Physical Report ---
DATE OF ADMISSION: 08/23/2018 HISTORY OF PRESENT ILLNESS: The patient is a very pleasant 83-year-old female with complex past medical history includes history of diabetes, CHF, atrial fibrillation, pacemaker, CAD, stents, CVA, defibrillator who recently underwent a defibrillator changes at [facility] on Monday, discharged home on Monday, did well postoperatively; however developed bleeding from her incision site of the defibrillator. She had contacted Dr. Grier, her saddle mechanic and he told her to withhold her Xarelto. The patient however continued to have bleeding and presented to the emergency room here at [facility] for further care. She denies chest pain, shortness of breath. No abdominal pain. No urinary symptoms. PAST MEDICAL HISTORY: Includes a history of CAD and stents, history of presyncope, history of pacemaker implantation for sick sinus syndrome, history of pacemaker upgrade to a biventricular ICD by Dr. 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 She did undergo angioplasty and stenting of the right cavernous back in September 2016. She has a history of intracranial carotid stenosis, history of pulmonary hypertension, history of type 2 diabetes mellitus, history of chronic diastolic heart failure, history of hyperlipidemia, history of hypothyroidism, history of anemia, history of cataract surgery, history of surgery of left eye due to glaucoma, history of 2 cm colonic adenomatous polyps on colonoscopy, history of gastritis and gastric cardia, history of recurrent congestive heart failure and recurrent pleural effusions for which she underwent right-sided video-assisted thoracoscopy surgery and pleurodesis in July 2017, history of right-sided hand tenosynovitis, history of left arm hematoma after blood draw, history of cellulitis of the left arm in the past. ALLERGIES: Allergic to morphine. SOCIAL HISTORY: She does not smoke. Does not drink any alcohol. Does not use any drugs. She has a very supportive family. REVIEW OF SYSTEMS: A 12-point review of systems reviewed negative except for above. PHYSICAL EXAMINATION: GENERAL: She is well developed, well nourished, currently in no apparent distress. VITAL SIGNS: Stable. She is afebrile. HEENT: Head is normocephalic, atraumatic. Pupils are equal, reactive to light. Extraocular muscles are intact. Eyes are anicteric. NECK: Supple. No JVP. LUNGS: Clear. HEART: Regular. ABDOMEN: Soft. Positive bowel sounds. Nondistended and nontender. CHEST: Left chest wall, she does have the ICD site with slight bleeding from the incision. No sign of infection. EXTREMITIES: No clubbing, cyanosis, or edema. NEURO: Nonfocal. PSYCH: Normal mood and affect. LABORATORY DATA: White count of 6.3, hemoglobin 10.5, hematocrit 33.1, platelet count 99,000. Chemistry reveals sodium 139, potassium 4.8, BUN of 52, creatinine 2.3, glucose 211. ASSESSMENT AND PLAN: The patient is a pleasant but unfortunate 83-year-old female, status post recent ICD upgrade and presents to the ER with bleeding from the ICD site. The patient was told to hold the Xarelto. She will be admitted, will be monitored overnight. She will be seen by Dr. Grier, saddle mechanic. We will monitor her laboratories. She does have baseline renal insufficiency as well. We will monitor her anemia. Continue medications from home. The patient should be on DVT and ulcer prophylaxis. Trae Calvo M.D. DR: Venkatesh JOB#: [id number] CC: Gonzalez Grier M.D.; Fax#: [phone]
--- NOTE | 2018-08-24 04:37 | Consultation ---
DATE OF CONSULTATION: 08/23/2018 CARDIAC ELECTROPHYSIOLOGY CONSULTATION CONSULTING PHYSICIAN: Gonzalez Grier M.D. REFERRING PHYSICIAN: Trae Calvo M.D. REASON FOR CONSULTATION: Bleeding from ICD site. HISTORY OF PRESENT ILLNESS: The patient is a very pleasant 83-year-old lady with history of hypertension and congestive heart failure, who recently had a permanent pacemaker implantation, who underwent upgrade to biventricular defibrillator with a [employer] device in March 2018. The patient also has paroxysmal atrial fibrillation as well as recurrent pleural effusion. The patient presented to outside facility from the defibrillator and subsequent ICD interrogation noted that the right ventricular lead had been dislodged. The patient subsequently underwent reposition of the right ventricular lead at [facility] by me on 08/17/2018. The patient's Xarelto had been discontinued two days prior to procedure and was resumed two days after the procedure. The patient remained pretty stable, but suddenly in the middle of the night last night, almost a week after implant, started oozing from the upper edge of the incision. As the patient comes to my office when I evaluated in the office, noticed that the patient had significant bleeding from the upper edge of the incision. The patient was then sent to [facility] emergency room and the patient was evaluated in the ER. Manual pressure was applied and significant hematoma was drained from operative incision by manual pressure. The incision was then cleansed with Betadine and alcohol and new Dermabond was then applied. The patient will be admitted for observation and IV antibiotic therapy to make sure the bleeding stops. The patient's Xarelto also discontinued. REVIEW OF SYSTEMS: Review of systems was performed and was negative other than what was mentioned in the history of present illness. PAST MEDICAL HISTORY: 1. Severe cardiomyopathy, EF of 32%. 2. Status post [employer] pacemaker upgrade to a biventricular defibrillator in March 2018 and subsequent right ventricular lead revision last week on 08/17/2018. 3. Paroxysmal atrial fibrillation. 4. History of pleural effusion, status post VATS pleurodesis. 5. COPD. 6. Anemia. FAMILY HISTORY: Noncontributory. SOCIAL HISTORY: She lives at home with family. Does not smoke or drink alcohol. PHYSICAL EXAMINATION: VITAL SIGNS: Show blood pressure of 110/70, pulse 60, respirations 18, and she is afebrile. HEAD AND NECK: Shows no JVD or carotid bruit. LUNGS: Clear. CARDIOVASCULAR: Regular S1 and S2 with no gallop or murmur. ABDOMEN: Soft. EXTREMITIES: No pitting edema. Her ICD site now is dry after manual pressure was applied and new Dermabond was applied. LABORATORY DATA: Her labs show white count of 6.3, hemoglobin of 10.5, hematocrit 33.1, and platelet count of 99. Sodium 139, potassium 4.8, BUN of 52, and creatinine of 2.3. ASSESSMENT AND PLAN: 1. Bleeding from upper incision of the defibrillator. This happened a week after ICD lead revision. This is due to Xarelto. Xarelto was discontinued. Hold off on anticoagulation until the patient's incision is completely healed especially in this patient with renal failure. 2. Status post right ventricular lead revision of the patient's biventricular [employer] defibrillator. 3. Hypertension. Continue current heart failure medication, on Coreg, Lasix, Aldactone, and losartan. 4. History of severe anemia, this year. 5. Renal failure, creatinine of 2.3. On 08/15/2018, her creatinine was 2.7. We may need to change the patient's lisinopril and Aldactone to hydralazine and nitrate as well. Thank you very much, Dr. Calvo, for allowing me to participate in the care of this patient. Please do not hesitate to contact me for any questions regarding my evaluation. Gonzalez Grier M.D. DR: SHIRA JOB#: [id number] CC:
[2018-08-24] MEDS: NovoLOG Insulin Flexpen SUBQ SCH ×2 (06:29→12:19)
[2018-08-24] MEDS ORDERED: NovoLOG Insulin Flexpen SUBQ SCH (06:30)
--- NOTE | 2018-08-24 07:30 | NUR ---
HAND-OFF: Report given to ANNABELLE Chau.
--- NOTE | 2018-08-24 07:31 | Emergency Room Report ---
History of Present Illness General Chief Complaint: General Complaint Source: Patient, Medical Record Present Illness HPI Patient presents with complaints of bleeding from her pacemaker site in the left upper chest patient had follow-up today With her specialist at the time of evaluation that appears to be continued oozing that was not being controlled with pressure Patient denies any chest pain denies any short of breath Had a recent revision of the pacemaker patient was on xarelto, which was held prior to the procedure and is also being held at this time Allergies: Coded Allergies: MORPHINE (Verified Allergy, Unknown, 08/12/18) Patient History Past Medical History: see triage record Pertinent Family History: none Last Menstrual Period: na Reviewed Nursing Documentation: PMH: Agreed; PSxH: Agreed Nursing Documentation-PMH Past Medical History: No History, Except For Hx Cardiac Problems: Yes - pulmonary hypertension Hx Hypertension: Yes Hx Pacemaker: Yes - AICD on the left Hx Diabetes: Yes Hx Cancer: No Hx Gastrointestinal Problems: No Hx Neurological Problems: Yes - stroke Review of Systems All Other Systems: negative except mentioned in HPI Physical Exam Vital Signs Date Time Temp Pulse Resp B/P (MAP) Pulse Ox O2 Delivery O2 Flow Rate FiO2 08/23/18 13:25 98.2 60 18 113/62 98 Room Air Sp02 EP Interpretation: reviewed, normal General Appearance: well appearing, no apparent distress Head: normocephalic, atraumatic Eyes: bilateral eye PERRL, bilateral eye EOMI ENT: hearing grossly normal, normal pharynx Neck: full range of motion, supple Respiratory: lungs clear, no retraction, no accessory muscle use Cardiovascular #1: regular rate, rhythm Gastrointestinal: non tender, soft Genitourinary: no CVA tenderness Musculoskeletal: normal inspection Neurologic: alert, oriented x3, responsive Skin: other - Small open area just at the superior aspect of the pacemaker there is some evidence of dark oozing blood improved with pressure however again begins oozing, Lymphatic: no adenopathy Medical Decision Making Diagnostic Impression: Primary Impression: bleeding pacemaker site ER Course Patient is complex with active bleeding from the pacemaker site Patient required acute intervention with placing pressure type dressing cleansing the area and sterilizing the area blood work obtain at this time Patient will require further specialty examination and intervention Labs Test 08/23/18 14:18 White Blood Count 6.3 K/UL (4.8-10.8) Red Blood Count 3.42 M/UL (4.20-5.40) Hemoglobin 10.5 G/DL (12.0-16.0) Hematocrit 33.1 % (37.0-47.0) Mean Corpuscular Volume 97 FL (80-99) Mean Corpuscular Hemoglobin 30.6 PG (27.0-31.0) Mean Corpuscular Hemoglobin Concent 31.6 G/DL (32.0-36.0) Red Cell Distribution Width 16.1 % (11.6-14.8) Platelet Count 99 K/UL (150-450) Mean Platelet Volume 12.6 FL (6.5-10.1) Neutrophils (%) (Auto) % (45.0-75.0) Lymphocytes (%) (Auto) % (20.0-45.0) Monocytes (%) (Auto) % (1.0-10.0) Eosinophils (%) (Auto) % (0.0-3.0) Basophils (%) (Auto) % (0.0-2.0) Differential Total Cells Counted 100 Neutrophils % (Manual) 87 % (45-75) Lymphocytes % (Manual) 6 % (20-45) Monocytes % (Manual) 6 % (1-10) Eosinophils % (Manual) 1 % (0-3) Basophils % (Manual) 0 % (0-2) Band Neutrophils 0 % (0-8) Platelet Estimate Decreased Platelet Morphology Normal Polychromasia 1+ Hypochromasia 2+ Anisocytosis 1+ Macrocytosis 1+ Prothrombin Time 15.3 SEC (9.30-11.50) Prothromb Time International Ratio 1.5 (0.9-1.1) Activated Partial Thromboplast Time 37 SEC (23-33) Sodium Level 139 MMOL/L (136-145) Potassium Level 4.8 MMOL/L (3.5-5.1) Chloride Level 101 MMOL/L (98-107) Carbon Dioxide Level 32 MMOL/L (21-32) Anion Gap 7 mmol/L (5-15) Blood Urea Nitrogen 52 mg/dL (7-18) Creatinine 2.3 MG/DL (0.55-1.30) Estimat Glomerular Filtration Rate mL/min (>60) Glucose Level 211 MG/DL (74-106) Calcium Level 10.1 MG/DL (8.5-10.1) Total Bilirubin 0.8 MG/DL (0.2-1.0) Aspartate Amino Transf (AST/SGOT) 20 U/L (15-37) Alanine Aminotransferase (ALT/SGPT) 15 U/L (12-78) Alkaline Phosphatase 100 U/L (46-116) Total Protein 7.8 G/DL (6.4-8.2) Albumin 3.6 G/DL (3.4-5.0) Globulin 4.2 g/dL Albumin/Globulin Ratio 0.9 (1.0-2.7) Last Vital Signs Date Time Temp Pulse Resp B/P (MAP) Pulse Ox O2 Delivery O2 Flow Rate FiO2 08/24/18 06:10 Room Air 08/24/18 04:00 98.0 61 18 124/55 (78) 99 Status: improved Disposition: ADMITTED INPATIENT Condition: Serious Referrals: Trae Calvo MD (PCP) Khai Harrell DO Aug 24, 2018 07:31
[2018-08-24 08:00] VITALS: BP 118/58
--- NOTE | 2018-08-24 08:00 | NUR ---
NURSE NOTES: Received report from Gayle ALANIS, pt a/a/o x4 laying in bed with no signs of distress or other issues at this time. Iv on the left AC gauge #20. dressing dry and intact. pt is able to ambulate with steady with staff supervision. call light within reach. bed in lowest position, side rales up x4. I will f/u as needed.
[2018-08-24 08:12] LABS: HEMATOCRIT 31.5 % (37.0-47.0); HEMOGLOBIN 10.2 G/DL (12.0-16.0); MEAN CORPUSCULAR VOLUME 97 FL (80-99); PLATELET COUNT 96 K/UL (150-450); RED BLOOD COUNT 3.26 M/UL (4.20-5.40); RED CELL DISTRIBUTION WIDTH 16.3 % (11.6-14.8); WHITE BLOOD COUNT 5.5 K/UL (4.8-10.8)
[2018-08-24 08:37] LABS: ALANINE AMINOTRANSFERASE 15 U/L (12-78); ALBUMIN 3.4 G/DL (3.4-5.0); ALBUMIN/GLOBULIN RATIO 0.8 (1.0-2.7); ALKALINE PHOSPHATASE 92 U/L (46-116); ANION GAP 8 mmol/L (5-15); ASPARTATE AMINO TRANSFERASE 16 U/L (15-37); BILIRUBIN,TOTAL 0.6 MG/DL (0.2-1.0); BLOOD UREA NITROGEN 47 mg/dL (7-18); CALCIUM 9.8 MG/DL (8.5-10.1); CARBON DIOXIDE 29 MMOL/L (21-32); CHLORIDE 105 MMOL/L (98-107); POTASSIUM 4.1 MMOL/L (3.5-5.1); SODIUM 142 MMOL/L (136-145)
[2018-08-24] MEDS ORDERED: Allopurinol 100mg Tab ORAL SCH (09:00)
[2018-08-24] MEDS ORDERED: HydrALAZINE 25mg tab ORAL SCH (09:00)
[2018-08-24] MEDS ORDERED: Spironolactone 25mg tab ORAL SCH (09:00)
[2018-08-24] MEDS ORDERED: Carvedilol 6.25mg Tab ORAL SCH (09:00)
[2018-08-24] MEDS ORDERED: Losartan 25mg tab ORAL SCH (09:00)
[2018-08-24] MEDS ORDERED: Imdur 30mg tab ORAL SCH (09:00)
[2018-08-24] MEDS ORDERED: Atorvastatin 20mg tab ORAL SCH (09:00)
[2018-08-24] MEDS ORDERED: Furosemide 40mg tab ORAL SCH ×2 (09:00)
[2018-08-24] MEDS ORDERED: sitaGLIPtin 25mg tab ORAL SCH (09:00)
[2018-08-24] MEDS ORDERED: Amiodarone 200mg tab ORAL SCH (09:00)
[2018-08-24] MEDS: Carvedilol 6.25mg Tab ORAL SCH (09:15)
[2018-08-24] MEDS: ceFAZolin 0.5gm in D5W 55ml IV SCH (09:16)
[2018-08-24 12:00] VITALS: BP 113/52
--- NOTE | 2018-08-24 12:58 | Cardiac Electrophysiology PN ---
Assessment/Plan Assessment/Plan 1. Bleeding from upper incision of the defibrillator. This happened a week after ICD lead revision. This is due to Plavix plus Xarelto. Xarelto was discontinued. Hold off on anticoagulation until the patient's incision is completely healed especially in this patient with renal failure. Now incision shows no hematoma or oozing after the pressure dressing and the new DermaBond 2. Status post right ventricular lead revision of the patient's biventricular [employer] defibrillator ICD. Interrogation showed normal Fx . 3. Hypertension. Continue current heart failure medication, on Coreg, Lasix, Aldactone, and losartan. 4. History of severe anemia 5. Renal failure, creatinine of 2.0 OK To DC FU with me on Monday Off Xarelto until next Monday Subjective Subjective No further bleeding from incision since Xarelto DCed and new Dermabond applied and pressure dressing Objective Last 24 Hour Vital Signs Date Time Temp Pulse Resp B/P (MAP) Pulse Ox O2 Delivery O2 Flow Rate FiO2 08/24/18 12:00 98.7 64 18 113/52 (72) 100 08/24/18 09:17 118/58 08/24/18 09:16 118/58 08/24/18 09:15 118/58 08/24/18 09:15 61 118/58 08/24/18 09:00 Room Air 08/24/18 08:00 97.9 61 18 118/58 (78) 99 08/24/18 06:10 Room Air 08/24/18 04:00 98.0 61 18 124/55 (78) 99 08/24/18 00:00 97.3 61 18 94/60 (71) 97 08/23/18 22:07 61 141/60 08/23/18 20:00 97.8 61 18 141/60 (87) 98 08/23/18 19:51 98.6 87 18 129/69 98 Room Air 08/23/18 18:00 98.1 60 16 125/98 95 Room Air 08/23/18 13:35 60 18 Room Air 08/23/18 13:35 98.2 60 18 113/62 98 Room Air 08/23/18 13:25 98.2 60 18 113/62 98 Room Air Intake and Output 08/23/18 08/24/18 19:00 07:00 Intake Total 55 ml Balance 55 ml Intake Oral 0 ml IV Total 55 ml # Voids 1 Laboratory Tests Test 08/23/18 14:18 08/24/18 06:38 White Blood Count 6.3 K/UL (4.8-10.8) 5.5 K/UL (4.8-10.8) Red Blood Count 3.42 M/UL (4.20-5.40) L 3.26 M/UL (4.20-5.40) L Hemoglobin 10.5 G/DL (12.0-16.0) L 10.2 G/DL (12.0-16.0) L Hematocrit 33.1 % (37.0-47.0) L 31.5 % (37.0-47.0) L Mean Corpuscular Volume 97 FL (80-99) 97 FL (80-99) Mean Corpuscular Hemoglobin 30.6 PG (27.0-31.0) 31.3 PG (27.0-31.0) H Mean Corpuscular Hemoglobin Concent 31.6 G/DL (32.0-36.0) L 32.4 G/DL (32.0-36.0) Red Cell Distribution Width 16.1 % (11.6-14.8) H 16.3 % (11.6-14.8) H Platelet Count 99 K/UL (150-450) L 96 K/UL (150-450) L Mean Platelet Volume 12.6 FL (6.5-10.1) H 11.1 FL (6.5-10.1) H Neutrophils (%) (Auto) % (45.0-75.0) % (45.0-75.0) Lymphocytes (%) (Auto) % (20.0-45.0) % (20.0-45.0) Monocytes (%) (Auto) % (1.0-10.0) % (1.0-10.0) Eosinophils (%) (Auto) % (0.0-3.0) % (0.0-3.0) Basophils (%) (Auto) % (0.0-2.0) % (0.0-2.0) Differential Total Cells Counted 100 100 Neutrophils % (Manual) 87 % (45-75) H 73 % (45-75) Lymphocytes % (Manual) 6 % (20-45) L 11 % (20-45) L Monocytes % (Manual) 6 % (1-10) 13 % (1-10) H Eosinophils % (Manual) 1 % (0-3) 2 % (0-3) Basophils % (Manual) 0 % (0-2) 1 % (0-2) Band Neutrophils 0 % (0-8) 0 % (0-8) Platelet Estimate Decreased L Decreased L Platelet Morphology Normal Normal Polychromasia 1+ Hypochromasia 2+ 1+ Anisocytosis 1+ 1+ Macrocytosis 1+ Prothrombin Time 15.3 SEC (9.30-11.50) H Prothromb Time International Ratio 1.5 (0.9-1.1) H Activated Partial Thromboplast Time 37 SEC (23-33) H Sodium Level 139 MMOL/L (136-145) 142 MMOL/L (136-145) Potassium Level 4.8 MMOL/L (3.5-5.1) 4.1 MMOL/L (3.5-5.1) Chloride Level 101 MMOL/L (98-107) 105 MMOL/L (98-107) Carbon Dioxide Level 32 MMOL/L (21-32) 29 MMOL/L (21-32) Anion Gap 7 mmol/L (5-15) 8 mmol/L (5-15) Blood Urea Nitrogen 52 mg/dL (7-18) H 47 mg/dL (7-18) H Creatinine 2.3 MG/DL (0.55-1.30) H 2.0 MG/DL (0.55-1.30) H Estimat Glomerular Filtration Rate mL/min (>60) mL/min (>60) Glucose Level 211 MG/DL (74-106) H 93 MG/DL (74-106) # Calcium Level 10.1 MG/DL (8.5-10.1) 9.8 MG/DL (8.5-10.1) Total Bilirubin 0.8 MG/DL (0.2-1.0) 0.6 MG/DL (0.2-1.0) Aspartate Amino Transf (AST/SGOT) 20 U/L (15-37) 16 U/L (15-37) Alanine Aminotransferase (ALT/SGPT) 15 U/L (12-78) 15 U/L (12-78) Alkaline Phosphatase 100 U/L (46-116) 92 U/L (46-116) Total Protein 7.8 G/DL (6.4-8.2) 7.6 G/DL (6.4-8.2) Albumin 3.6 G/DL (3.4-5.0) 3.4 G/DL (3.4-5.0) Globulin 4.2 g/dL 4.2 g/dL Albumin/Globulin Ratio 0.9 (1.0-2.7) L 0.8 (1.0-2.7) L Hemoglobin A1c 9.1 % (4.3-6.0) H Pro-B-Type Natriuretic Peptide 1755 pg/mL (0-125) H Objective HEAD AND NECK: No JVD or carotid bruit. LUNGS: Clear. CARDIOVASCULAR: Regular S1 and S2 with no gallop or murmur. ABDOMEN: Soft. EXTREMITIES: No pitting edema. Her ICD site now is dry and no oozing or signif hematoma Gonzalez Grier MD Aug 24, 2018 12:58
[2018-08-24] MEDS ORDERED: NS 275ml ONE (15:36)
[2018-08-24] MEDS ORDERED: Tubing IV Secondary IV ONE (15:36)
--- NOTE | 2018-08-24 15:48 | NUR ---
NURSE NOTES: Received discharge orders from Dr. Calvo and Dr. Slade, per MDs pt to d/c home with previous home meds except per Xeralto. per Dr. Slade pt will need to follow up at his office next Monday at 12. per Dr. Calvo to follow up in one week. RN removed IV prior to d/c. per Dr. Slade to keep surgical site open to air. belongings and discharge instructions given to patient and pt's daughter. RN for Cephalexin 500mg po TID #20 given to patient, she stated that she will go to her regular pharmacy. pt left the floor via w/c with no signs of distress or other issues at this time. family will to provide transportation. I will f/u as needed.
--- NOTE | 2018-08-24 16:05 | NUR ---
CASE MANAGEMENT:REVIEW 83 YR OLD FEMALE PRESENTED TO ER CC: PACEMAKER SITE BLEEDING...SEEN IN MD'S OFFICE BUT STILL NOT CONTROLLED PMH: S/P PACEMAKER PLACEMENT LAST MONDAY SI: BLEEDING PACEMAKER SITE 98.2 60 18 113/62 98% ON RA H/H-10.5/33.1 PLT-99 BUN+52 CR+2.3 PT+15.3 INR+1.5 APTT+37 IS: IV ROCEPHIN : TO MED/SURG 3 [facility] 08/24/18 SI: H/H-10.2/31.5 PLT-96 IS: AMIODARONE PO QD PLAVIX PO QD LASIX PO BID COZAAR PO QD PROTONIX PO QD IV ANCEF Q12 : MED/SURG 3 [facility] PLAN: DISCHARGE HOME Addendum: 08/26/18 at 1826 by Kristal Magaña [facility] MET
--- NOTE | 2018-08-26 08:18 | Discharge Summary ---
Discharge Summary Discharge Summary _ DATE OF ADMISSION: 08/23/2018 DATE OF DISCHARGE: 08/24/2018 DISCHARGED BY: Dr. Calvo REASON FOR ADMISSION: 83 years old female with history of hypertension, congestive heart failure, paroxysmal atrial fibrillation, recurrent pleural effusion, recently had a permanent pacemaker implantation and then underwent upgrade to biventricular defibrillator with a [employer] device in March 2018. The patient presented to outside facility for interrogation and noted that the right ventricular lead had been dislodged. Patient subsequently undergone reposition of the right ventricular lead at [facility]. Xarelto was discontinued 2 days prior to procedure and was resumed 2 days after the procedure. Patient remained fairly stable, but in the middle of the night, almost a week after implant, started oozing from the upper edge of the incision. Patient came to commercial producer office for evaluation and was noted to have significant bleeding from the upper edge of the incision. Patient subsequently was sent to [facility] emergency department for further evaluation and management. Patient was evaluated in the emergency room. Manual pressure was applied and significant hematoma was drained from operative incision by manual pressure. The incision then was cleansed with Betadine and alcohol and Dermabond was applied. Patient was admitted for further observation. CONSULTANTS: commercial producer Dr. Florence [facility] COURSE: Patient admitted for observation. Xarelto stopped. Patient started on empiric antibiotics. Patient remained afebrile, no leukocytosis. According to commercial producer, bleeding happened a week after ICD lead revision and was likely secondary to Xarelto. Xarelto was discontinued as mentioned above. Block Paver recommended to hold off on anticoagulation until incision completely healed, especially in the patient with renal failure. Current antihypertensive and anti-failure regimen consisted of beta-jake, ARB , Lasix and Aldactone was continued. Amiodarone was continued for paroxysmal atrial fibrillation along with statin. Renal parameters and electrolytes were closely monitored. If creatinine remains elevated, cardiology suggested to possibly changed to hydralazine and an immune. Creatinine down to 2. Closely monitor renal parameters as outpatient. Daily Hemoglobin and hematocrit were closely monitored, remained at the baseline. Prior to discharge, hemoglobin 10. oh, 2 hematocrit 31.5. Hemoglobin A1c 9.1, clearly not at goal. Blood sugar was managed with Starlix, Januvia and sliding scale of insulin as needed. Patient will need further optimization of anti-glycemic regimen as outpatient. GI prophylaxis provided. No further evidence of bleeding. Block Paver cleared for discharge. Patient to follow-up with commercial producer next week. Due to rapid and unexpected improvement in patient condition, patient was discharged in 1 day. FINAL DIAGNOSES: Bleeding from upper edge of incision of the defibrillator, likely due to Xarelto Status post right ventricular lead revision of biventricular [employer] defibrillator Hypertension Anemia Renal failure Diabetes mellitus DISCHARGE MEDICATIONS: See Medication Reconciliation list. DISCHARGE INSTRUCTIONS: Patient discharged home. Follow-up with a commercial producer next week on Monday I have been assigned to dictate discharge summary for this account. I was not involved in the patient's management. Lorena Musa NP Aug 26, 2018 08:18
[2018-08-28] MEDS ORDERED: Vitamin D 50,000 units cap ORAL SCH (09:00)
== END 2018-08-24 15:37 | disposition home or self-care (01) | DRG 813 ==
LOC: EMR 14:01 → 3E 15:00 → EDBEDREQ 18:45
DX: D68.32 Hemorrhagic disorder due to extrinsic circulating anticoagulants (principal); L76.22 Postprocedural hemorrhage of skin and subcutaneous tissue following other procedure; I42.9 Cardiomyopathy, unspecified; T45.515A Adverse effect of anticoagulants, initial encounter; Z95.810 Presence of automatic (implantable) cardiac defibrillator; I10 Essential (primary) hypertension; D64.9 Anemia, unspecified; N19 Unspecified kidney failure; E11.9 Type 2 diabetes mellitus without complications; I48.0 Paroxysmal atrial fibrillation; J44.9 Chronic obstructive pulmonary disease, unspecified; Z88.6 Allergy status to analgesic agent; Z86.73 Personal history of transient ischemic attack (TIA), and cerebral infarction without residual deficits
CPT/HCPCS: 36415; 80053; 82962; 83036; 83880; 85007; 85025; 85610; 85730; 96365; 99285; J1815